=== PATIENT | male | born 1970 | race African-American/Black ===

== ENCOUNTER 2020-01-31 11:38 | Emergency (ER) | payer BC ==
[2020-01-31 11:46] VITALS: TEMP 98
[2020-01-31] MEDS ORDERED: SODIUM CHLORIDE 0.9% 500 ML 500 ML IV STA (12:06)
--- NOTE | 2020-01-31 12:13 | ED ---
Seizure HPI - General Chief Complaint: Seizure Stated Complaint: Seizure Time Seen by Provider: 01/31/20 11:58 Source: EMS Mode of arrival: EMS Limitations: no limitations - History of Present Illness Initial Comments: Patient is a 49-year-old male, with history of hypertension, presenting to the emergency department via EMS after suffering a seizure at work. Patient states he remembers loading a refrigerator onto a truck and the next thing he remembers is waking up laying down. According to bystanders, patient was loading a truck and then ran over to the [employer] and had a witnessed grand mal seizure. This lasted for approximately 1-2 minutes. Patient then remembers waking up to people standing around him, asking him to not get up. Patient denies hitting his head, he denies having a headache, lightheadedness, dizziness, chest pain, shortness of breath. He denies recent fever, chills, abdominal pain, nausea, vomiting. He states he does not take any medications at this time. He used to take medication for high blood pressure but states he "only takes the medication when he feels like it." He does admit to daily cigarette use, regular alcohol and occasional marijuana use. He denies any other drug use. He states prior to this episode today he's been feeling his normal self. He states he has been in isolation for the past 4-5 weeks and has not been anywhere else. He has no other complaints at this time. Upon arrival to the ER, he is hypertensive, tachycardia, afebrile. He is 97% on room air, respiratory rate 16. - Related Data Previous Rx's Medication Instructions Recorded amLODIPine [Norvasc] 5 mg PO DAILY 30 Days #30 tab 01/31/20 Allergies Allergy/AdvReac Type Severity Reaction Status Date / Time No Known Allergies Allergy Verified 01/31/20 14:18 Review of Systems ROS Statement: Those systems with pertinent positive or pertinent negative responses have been documented in the HPI. ROS Other: All systems not noted in ROS Statement are negative. Past Medical History Past Medical History: Hypertension History of Any Multi-Drug Resistant Organisms: None Reported Past Surgical History: No Surgical Hx Reported Smoking Status: Current every day smoker Past Alcohol Use History: None Reported Past Drug Use History: None Reported General Exam - General Exam Comments Initial Comments: GENERAL: Well-appearing, well-nourished and in no acute distress. HEAD: Atraumatic, normocephalic. EYES: Pupils equal round and reactive to light, extraocular movements intact, sclera anicteric, conjunctiva are normal. ENT: TMs normal, nares patent, oropharynx clear without exudates. Moist mucous membranes. NECK: Normal range of motion, supple without lymphadenopathy or JVD. LUNGS: Breath sounds clear to auscultation bilaterally and equal. No wheezes rales or rhonchi. HEART: Tachycardia rate and rhythm without murmurs, rubs or gallops. ABDOMEN: Soft, nontender, normoactive bowel sounds. No guarding, no rebound. No masses appreciated. : Deferred EXTREMITIES: Normal range of motion, no pitting or edema. No clubbing or cyanosis. Strength is 5 out of 5 in upper and lower extremities. Sensation is equal in bilateral upper and lower extremities. Patient is neurovascular intact. NEUROLOGICAL: Cranial nerves II through XII grossly intact. Normal speech, normal gait. PSYCH: Normal mood, normal affect. SKIN: Warm, Dry, normal turgor, no rashes or lesions noted. Limitations: no limitations Course Vital Signs 01/31/20 01/31/20 01/31/20 11:43 12:21 13:28 Temperature 98 F Pulse Rate 117 H 117 H 96 Respiratory 16 16 18 Rate Blood Pressure 222/128 183/114 176/111 O2 Sat by Pulse 97 97 99 Oximetry 01/31/20 15:11 Temperature Pulse Rate 85 Respiratory 16 Rate Blood Pressure 178/117 O2 Sat by Pulse 96 Oximetry Medical Decision Making - Medical Decision Making Patient is a 49-year-old male here via EMS after having a seizure. He denies history of seizures. He arrives slightly tachycardia, hypertensive. He is afebrile. His exam is unremarkable. No neuro deficits. He does have a history of hypertension however does not take medication regularly. He does not follow with the PCP regularly. He does admit to daily cigarette and alcohol abuse. Marijuana use. No other drug use. Lab work shows normal CBC. Liver enzymes are slightly elevated. Urine shows signs of dehydration, no signs of infection. Urine tox is positive for marijuana, no other findings. Serum alcohol is normal. CT of the brain shows a small subarachnoid cyst, rest of CT brain is unremarkable. EKG shows sinus tachycardia. Patient was given fluids and labetalol. Patient remains asymptomatic in the ER. I discussed these findings with the patient. Given the new onset of a seizure, patient will be referred to neurology. Patient was instructed not to drive until follow-up with neurology. Patient's is here with him now and is in agreement with this plan. Patient does follow with [facility] and will call for an appointment and will have them give referral for neurology. Patient will also be given prescription for Norvasc for hypertension. Patient used to be on this medication. Patient and patient's is in agreement with this plan of care. Strict return parameters were discussed with the patient and he verbalized understanding. Patient is stable for discharge. Case discussed in detail with Dr. Rosado. - Lab Data Result diagrams: 01/31/20 12:20 01/31/20 12:20 Lab Results 01/31/20 01/31/20 01/31/20 Range/Units 12:20 12:20 13:28 WBC 8.3 (3.8-10.6) k/uL RBC 4.03 L (4.30-5.90) m/uL Hgb 13.8 (13.0-17.5) gm/dL Hct 43.7 (39.0-53.0) % MCV 108.4 H (80.0-100.0) fL MCH 34.3 (25.0-35.0) pg MCHC 31.6 (31.0-37.0) g/dL RDW 13.1 (11.5-15.5) % Plt Count 388 (150-450) k/uL Neutrophils % 83 % Lymphocytes % 10 % Monocytes % 4 % Eosinophils % 2 % Basophils % 0 % Neutrophils # 6.9 (1.3-7.7) k/uL Lymphocytes # 0.8 L (1.0-4.8) k/uL Monocytes # 0.4 (0-1.0) k/uL Eosinophils # 0.1 (0-0.7) k/uL Basophils # 0.0 (0-0.2) k/uL Macrocytosis Moderate Sodium 138 (137-145) mmol/L Potassium 4.1 (3.5-5.1) mmol/L Chloride 103 (98-107) mmol/L Carbon Dioxide 20 L (22-30) mmol/L Anion Gap 15 mmol/L BUN 12 (9-20) mg/dL Creatinine 0.91 (0.66-1.25) mg/dL Est GFR (CKD-EPI)AfAm >90 (>60 ml/min/1.73 sqM) Est GFR (CKD-EPI)NonAf >90 (>60 ml/min/1.73 sqM) Glucose 131 H (74-99) mg/dL Calcium 10.5 H (8.4-10.2) mg/dL Magnesium 2.2 (1.6-2.3) mg/dL Total Bilirubin 1.4 H (0.2-1.3) mg/dL AST 146 H (17-59) U/L ALT 83 H (4-49) U/L Alkaline Phosphatase 115 (38-126) U/L Total Protein 8.4 H (6.3-8.2) g/dL Albumin 5.0 (3.5-5.0) g/dL Urine Color Yellow Urine Appearance Clear (Clear) Urine pH 5.5 (5.0-8.0) Ur Specific [place] 1.019 (1.001-1.035) Urine Protein 2+ H (Negative) Urine Glucose (UA) Negative (Negative) Urine Ketones 1+ H (Negative) Urine Blood Negative (Negative) Urine Nitrite Negative (Negative) Urine Bilirubin Negative (Negative) Urine Urobilinogen <2.0 (<2.0) mg/dL Ur Leukocyte Esterase Negative (Negative) Urine WBC <1 (0-5) /hpf Ur Squamous Epith Cells <1 (0-4) /hpf Urine Bacteria Rare H (None) /hpf Hyaline Casts 9 H (0-2) /lpf Urine Mucus Rare H (None) /hpf Urine Opiates Screen Not Detected (NotDetected) Ur Oxycodone Screen Not Detected (NotDetected) Urine Methadone Screen Not Detected (NotDetected) Ur Propoxyphene Screen Not Detected (NotDetected) Ur Barbiturates Screen Not Detected (NotDetected) U Tricyclic Antidepress Not Detected (NotDetected) Ur Phencyclidine Scrn Not Detected (NotDetected) Ur Amphetamines Screen Not Detected (NotDetected) U Methamphetamines Scrn Not Detected (NotDetected) U Benzodiazepines Scrn Not Detected (NotDetected) Urine Cocaine Screen Not Detected (NotDetected) U Marijuana (THC) Screen Detected H (NotDetected) Serum Alcohol <10 mg/dL - EKG Data EKG Comments: Ventricular rate 116, P in the low 142, QTC 439. Sinus tach, possible left atrial enlargement, left ventricular hypertrophy. Disposition Clinical Impression: New onset seizure Disposition: HOME SELF-CARE Condition: Stable Instructions (If sedation given, give patient instructions): New-Onset Seizure in Adults (ED) Additional Instructions: Please return to the Emergency Department if symptoms worsen or any other concerns. Take blood pressure medication as prescribed. Contact PCP for neurology referral as discussed. Do not drive until neurology follow-up. Prescriptions: amLODIPine [Norvasc] 5 mg PO DAILY 30 Days #30 tab Is patient prescribed a controlled substance at d/c from ED?: No Referrals: None,Stated [Primary Care Provider] - 1-2 days
[2020-01-31 12:32] LABS: Basophils % (A) 0 %; Eosinophils # (A) 0.1 k/uL (0-0.7); Eosinophils % (A) 2 %; HCT 43.7 % (39.0-53.0); HGB 13.8 gm/dL (13.0-17.5); Lymphocytes # (A) 0.8 k/uL (1.0-4.8); Lymphocytes % (A) 10 %; MCH 34.3 pg (25.0-35.0); MCHC 31.6 g/dL (31.0-37.0); MCV 108.4 fL (80.0-100.0); Macrocytosis Moderate; Mean Platelet Volume 8.1; Monocytes # (A) 0.4 k/uL (0-1.0); Monocytes % (A) 4 %; Neutrophils # (A) 6.9 k/uL (1.3-7.7); Neutrophils % (A) 83 %; Platelet Count 388 k/uL (150-450); RBC 4.03 m/uL (4.30-5.90); RDW 13.1 % (11.5-15.5); WBC 8.3 k/uL (3.8-10.6)
[2020-01-31] MEDS ORDERED: LABETALOL 5 MG/ML VIAL MDV IVP STA (12:34)
[2020-01-31 12:46] LABS: ALT 83 U/L (4-49); AST 146 U/L (17-59); African American GFR (CKD) >90 (>60 ml/min/1.73 sqM); Alcohol <10 mg/dL; Alkaline Phosphatase 115 U/L (38-126); Anion Gap 15 mmol/L; Blood Urea Nitrogen 12 mg/dL (9-20); Calcium 10.5 mg/dL (8.4-10.2); Carbon Dioxide 20 mmol/L (22-30); Chloride 103 mmol/L (98-107); Glucose 131 mg/dL (74-99); Magnesium 2.2 mg/dL (1.6-2.3); Non-African American GFR(CKD) >90 (>60 ml/min/1.73 sqM); Potassium 4.1 mmol/L (3.5-5.1); Sodium 138 mmol/L (137-145); Total Bilirubin 1.4 mg/dL (0.2-1.3); Total Protein 8.4 g/dL (6.3-8.2)
--- NOTE | 2020-01-31 13:00 | CT ---
EXAMINATION TYPE: CT brain wo con DATE OF EXAM: 01/31/2020 COMPARISON: None INDICATION: Seizure activity, new onset DLP: 1099.4 mGycm, Automated exposure control for dose reduction was used. CONTRAST: None CT of the brain is performed utilizing 3 mm thick sections through the posterior fossa and 3 mm thick sections through the remaining calvarium. Study is performed within 24 hours of arrival to the hosp [facility]. No abnormal hyperdensity is present to suggest an acute intracranial hemorrhage. Small subarachnoid cyst may be within the anterior left middle cranial fossa with mild mass effect on the adjacent temporal lobe. No acute infarcts are evident. Ventricles and sulci are appropriate for the patient age. Paranasal sinuses and mastoid air cells within the ifpau-na-rbed are clear. IMPRESSIONS: 1. Small subarachnoid cyst may be within the left middle cranial fossa. 2. CT brain otherwise unremarkable.
[2020-01-31 14:26] LABS: Appearance,Urine Clear (Clear); Bacteria,Urine Rare /hpf; Bilirubin,Urine Negative (Negative); Blood,Urine Negative (Negative); Color,Urine Yellow; Glucose,Urine (UA) Negative (Negative); Hyaline Casts,Urine 9 /lpf (0-2); Ketones,Urine 1+ (Negative); Leukocyte Esterase,Urine Negative (Negative); Mucus,Urine Rare /hpf; Nitrite,Urine Negative (Negative); PH, Urine 5.5 (5.0-8.0); Protein,Urine 2+ (Negative); Specific Gravity,Urine 1.019 (1.001-1.035); Squamous Epithelial Cell,Urine <1 /hpf (0-4); Urobilinogen,Urine <2.0 mg/dL (<2.0); WBC,Urine <1 /hpf (0-5)
[2020-01-31 14:28] LABS: Amphetamine Screen,Urine Not Detected (NotDetected); Barbiturate Screen,Urine Not Detected (NotDetected); Benzodiazepines Screen,Urine Not Detected (NotDetected); Cocaine Screen,Urine Not Detected (NotDetected); Methadone Screen, Urine Not Detected (NotDetected); Opiate Screen,Urine Not Detected (NotDetected); Oxycodone Screen, Urine Not Detected (NotDetected); Phencyclidine Screen,Urine Not Detected (NotDetected); Tricyclic Antidepressant,Urine Not Detected (NotDetected); Urn Cannabinoid Scrn Detected (NotDetected)
[2020-01-31 15:13] VITALS: BP 178/117; PULSE 85; RESP 16
== END 2020-01-31 15:46 | disposition home or self-care (01) ==
LOC: EC 11:38
DX: R56.9 Unspecified convulsions (principal); R00.0 Tachycardia, unspecified; F12.90 Cannabis use, unspecified, uncomplicated; F10.10 Alcohol abuse, uncomplicated; R93.0 Abnormal findings on diagnostic imaging of skull and head, not elsewhere classified; I10 Essential (primary) hypertension; F17.210 Nicotine dependence, cigarettes, uncomplicated
CPT/HCPCS: 36415; 70450; 80053; 80306; 80320; 81001; 83735; 85025; 93005; 96361; 96374; 99285

== ENCOUNTER 2020-03-01 13:48 | Emergency (ER) | payer BC ==
[2020-03-01 13:56] VITALS: RESP 18
[2020-03-01] MEDS ORDERED: ACETAMINOPHEN TAB 325 MG TAB PO STA (14:11)
--- NOTE | 2020-03-01 14:33 | ED ---
General Adult HPI - General Chief complaint: Neuro Symptoms/Deficit Stated complaint: shaking Time Seen by Provider: 03/01/20 14:03 Source: patient Mode of arrival: ambulatory Limitations: no limitations - History of Present Illness Initial comments: 49-year-old male patient presents to the emergency department today for evaluation after experiencing a shaking episode. The patient reports generalized body tremors that lasted about 5 minutes. This occurred approximately one hour ago. Patient was seen and evaluated 1 month ago for new onset seizure. At that time bystanders had witnessed a generalized tonic-clonic seizure. Patient has no history of seizures. Does have a history of high blood pressure which is poorly controlled. Today patient reports a 5 day history of vomiting. States he's had vomiting daily, several episodes. States he has been only able to eat very small amounts at a time. He denies any abdominal pain, constipation, or diarrhea with this. Eyes any fever or chills. States he is wearing a heart monitor ordered by his doctor after having a seizure. He denies any headache, blurred vision, or double vision. Denies numbness or tingling to the extremities. Patient is also reporting occasional cough with no sputum production. Did start Chantix about 4 days ago to quit smoking. Patient denies any recent rash, shortness of breath, chest pain, back pain, dizziness, weakness, hematuria, dysuria, urinary urgency, urinary frequency, headache, visual changes, or any other complaints. - Related Data Home Medications Medication Instructions Recorded Confirmed Lisinopril [Zestril] 40 mg PO DAILY 03/01/20 03/01/20 Varenicline Tartrate [Chantix See Taper PO DAILY 03/01/20 03/01/20 Starter Pack] Previous Rx's Medication Instructions Recorded Ondansetron [Zofran ODT] 4 mg PO Q8HR PRN #20 tab 03/01/20 Allergies Allergy/AdvReac Type Severity Reaction Status Date / Time No Known Allergies Allergy Verified 03/01/20 14:51 Review of Systems ROS Statement: Those systems with pertinent positive or pertinent negative responses have been documented in the HPI. ROS Other: All systems not noted in ROS Statement are negative. Past Medical History Past Medical History: Hypertension, Seizure Disorder Additional Past Medical History / Comment(s): ct - brain abnormality History of Any Multi-Drug Resistant Organisms: None Reported Past Surgical History: No Surgical Hx Reported Smoking Status: Current every day smoker Past Alcohol Use History: None Reported Past Drug Use History: Marijuana General Exam Limitations: no limitations General appearance: alert, in no apparent distress, other (This is a well- developed, well-nourished adult male patient in no acute distress. Vital signs upon presentation are temperature 99.9F, pulse 119, respirations 18, blood pressure 227/119, pulse ox 98% on room air.) Eye exam: Present: normal appearance, PERRL, EOMI. Absent: scleral icterus, conjunctival injection, nystagmus, periorbital swelling ENT exam: Present: normal exam, normal oropharynx, mucous membranes moist Respiratory exam: Present: normal lung sounds bilaterally. Absent: respiratory distress, wheezes, rales, rhonchi, stridor Cardiovascular Exam: Present: regular rate, normal rhythm, normal heart sounds. Absent: systolic murmur, diastolic murmur, rubs, gallop, clicks GI/Abdominal exam: Present: soft, normal bowel sounds. Absent: distended, tenderness, guarding, rebound, rigid Neurological exam: Present: alert, oriented X3, CN II-XII intact, other (Strength in all 4 extremities is 5/5.) Psychiatric exam: Present: normal affect, normal mood Skin exam: Present: warm, dry, intact, normal color. Absent: rash Course Vital Signs 03/01/20 03/01/20 03/01/20 13:53 14:30 15:00 Temperature 99.9 F H Pulse Rate 119 H 94 90 Respiratory 18 18 18 Rate Blood Pressure 227/119 187/119 184/114 O2 Sat by Pulse 98 98 98 Oximetry 03/01/20 03/01/20 03/01/20 16:00 16:15 16:53 Temperature Pulse Rate 90 90 98 Respiratory 18 18 18 Rate Blood Pressure 183/117 188/113 202/121 O2 Sat by Pulse 98 98 100 Oximetry 03/01/20 03/01/20 03/01/20 17:10 17:11 17:25 Temperature 98.7 F Pulse Rate 106 H 111 H Respiratory 18 18 Rate Blood Pressure 186/108 188/113 O2 Sat by Pulse 100 98 Oximetry 03/01/20 18:14 Temperature Pulse Rate 100 Respiratory 18 Rate Blood Pressure 166/95 O2 Sat by Pulse 98 Oximetry EKG Findings - EKG Comments: EKG Findings:: EKG obtained at 1453 shows normal sinus rhythm with a ventricular rate of 98, GA interval 154, QRS duration 92, QT 352, QTc 449. No evidence of ST elevation or depression. Medical Decision Making - Medical Decision Making 49-year-old male patient presents to the emergency department today for evaluation after having an episode of shaking lasting about 5 minutes. Upon arrival patient's blood pressure is elevated at 200 systolic over 120 diastolic. Labs reviewed and did reveal elevated liver enzymes and elevated bilirubin. Patient did have an ultrasound performed outpatient yesterday, I did call the doctor's office this was not available for review at this time. Patient is afebrile. We did give doses of blood pressure medication, blood pressure did improve. No further shaking episodes while here. Temperature was mildly elevated upon arrival, white blood cell count is normal, chest x-ray is negative. I do believe shaking could be related to chills from fever. Discharge follow-up with his primary care physician for recheck in 1-2 days. Return parameters were discussed in detail. He verbalizes understanding and agree with this plan - Lab Data Result diagrams: 03/01/20 14:28 03/01/20 14:28 Lab Results 03/01/20 03/01/20 03/01/20 Range/Units 14:28 14:28 14:28 WBC 5.5 (3.8-10.6) k/uL RBC 4.12 L (4.30-5.90) m/uL Hgb 14.1 (13.0-17.5) gm/dL Hct 43.9 (39.0-53.0) % MCV 106.5 H (80.0-100.0) fL MCH 34.3 (25.0-35.0) pg MCHC 32.2 (31.0-37.0) g/dL RDW 12.9 (11.5-15.5) % Plt Count 238 (150-450) k/uL Neutrophils % 67 % Lymphocytes % 18 % Monocytes % 9 % Eosinophils % 3 % Basophils % 1 % Neutrophils # 3.7 (1.3-7.7) k/uL Lymphocytes # 1.0 (1.0-4.8) k/uL Monocytes # 0.5 (0-1.0) k/uL Eosinophils # 0.1 (0-0.7) k/uL Basophils # 0.0 (0-0.2) k/uL Macrocytosis Moderate PT 9.7 (9.0-12.0) sec INR 0.9 (<1.2) APTT 21.8 L (22.0-30.0) sec Sodium 138 (137-145) mmol/L Potassium 4.6 (3.5-5.1) mmol/L Chloride 100 (98-107) mmol/L Carbon Dioxide 26 (22-30) mmol/L Anion Gap 12 mmol/L BUN 14 (9-20) mg/dL Creatinine 0.90 (0.66-1.25) mg/dL Est GFR (CKD-EPI)AfAm >90 (>60 ml/min/1.73 sqM) Est GFR (CKD-EPI)NonAf >90 (>60 ml/min/1.73 sqM) Glucose 127 H (74-99) mg/dL POC Glucose (mg/dL) (75-99) mg/dL POC Glu I&C Technician ID Lactic Ac Sepsis Rflx Plasma Lactic Acid Jadon (0.7-2.0) mmol/L Calcium 10.0 (8.4-10.2) mg/dL Total Bilirubin 2.0 H (0.2-1.3) mg/dL AST 229 H (17-59) U/L ALT 107 H (4-49) U/L Alkaline Phosphatase 110 (38-126) U/L Total Protein 8.4 H (6.3-8.2) g/dL Albumin 5.2 H (3.5-5.0) g/dL Urine Color Urine Appearance (Clear) Urine pH (5.0-8.0) Ur Specific [place] (1.001-1.035) Urine Protein (Negative) Urine Glucose (UA) (Negative) Urine Ketones (Negative) Urine Blood (Negative) Urine Nitrite (Negative) Urine Bilirubin (Negative) Urine Urobilinogen (<2.0) mg/dL Ur Leukocyte Esterase (Negative) Urine RBC (0-5) /hpf Urine WBC (0-5) /hpf Hyaline Casts (0-2) /lpf Urine Mucus (None) /hpf 03/01/20 03/01/20 03/01/20 Range/Units 14:28 14:28 14:47 WBC (3.8-10.6) k/uL RBC (4.30-5.90) m/uL Hgb (13.0-17.5) gm/dL Hct (39.0-53.0) % MCV (80.0-100.0) fL MCH (25.0-35.0) pg MCHC (31.0-37.0) g/dL RDW (11.5-15.5) % Plt Count (150-450) k/uL Neutrophils % % Lymphocytes % % Monocytes % % Eosinophils % % Basophils % % Neutrophils # (1.3-7.7) k/uL Lymphocytes # (1.0-4.8) k/uL Monocytes # (0-1.0) k/uL Eosinophils # (0-0.7) k/uL Basophils # (0-0.2) k/uL Macrocytosis PT (9.0-12.0) sec INR (<1.2) APTT (22.0-30.0) sec Sodium (137-145) mmol/L Potassium (3.5-5.1) mmol/L Chloride (98-107) mmol/L Carbon Dioxide (22-30) mmol/L Anion Gap mmol/L BUN (9-20) mg/dL Creatinine (0.66-1.25) mg/dL Est GFR (CKD-EPI)AfAm (>60 ml/min/1.73 sqM) Est GFR (CKD-EPI)NonAf (>60 ml/min/1.73 sqM) Glucose (74-99) mg/dL POC Glucose (mg/dL) 118 H (75-99) mg/dL POC Glu I&C Technician ID Radha Camargo Lactic Ac Sepsis Rflx Plasma Lactic Acid Jadon 2.4 H* (0.7-2.0) mmol/L Calcium (8.4-10.2) mg/dL Total Bilirubin (0.2-1.3) mg/dL AST (17-59) U/L ALT (4-49) U/L Alkaline Phosphatase (38-126) U/L Total Protein (6.3-8.2) g/dL Albumin (3.5-5.0) g/dL Urine Color Yellow Urine Appearance Clear (Clear) Urine pH 7.5 (5.0-8.0) Ur Specific [place] 1.023 (1.001-1.035) Urine Protein 1+ H (Negative) Urine Glucose (UA) Negative (Negative) Urine Ketones Negative (Negative) Urine Blood Negative (Negative) Urine Nitrite Negative (Negative) Urine Bilirubin Negative (Negative) Urine Urobilinogen 4.0 (<2.0) mg/dL Ur Leukocyte Esterase Trace H (Negative) Urine RBC 1 (0-5) /hpf Urine WBC 1 (0-5) /hpf Hyaline Casts 3 H (0-2) /lpf Urine Mucus Occasional H (None) /hpf 03/01/20 Range/Units 15:22 WBC (3.8-10.6) k/uL RBC (4.30-5.90) m/uL Hgb (13.0-17.5) gm/dL Hct (39.0-53.0) % MCV (80.0-100.0) fL MCH (25.0-35.0) pg MCHC (31.0-37.0) g/dL RDW (11.5-15.5) % Plt Count (150-450) k/uL Neutrophils % % Lymphocytes % % Monocytes % % Eosinophils % % Basophils % % Neutrophils # (1.3-7.7) k/uL Lymphocytes # (1.0-4.8) k/uL Monocytes # (0-1.0) k/uL Eosinophils # (0-0.7) k/uL Basophils # (0-0.2) k/uL Macrocytosis PT (9.0-12.0) sec INR (<1.2) APTT (22.0-30.0) sec Sodium (137-145) mmol/L Potassium (3.5-5.1) mmol/L Chloride (98-107) mmol/L Carbon Dioxide (22-30) mmol/L Anion Gap mmol/L BUN (9-20) mg/dL Creatinine (0.66-1.25) mg/dL Est GFR (CKD-EPI)AfAm (>60 ml/min/1.73 sqM) Est GFR (CKD-EPI)NonAf (>60 ml/min/1.73 sqM) Glucose (74-99) mg/dL POC Glucose (mg/dL) (75-99) mg/dL POC Glu I&C Technician ID Lactic Ac Sepsis Rflx Y Plasma Lactic Acid Jadon (0.7-2.0) mmol/L Calcium (8.4-10.2) mg/dL Total Bilirubin (0.2-1.3) mg/dL AST (17-59) U/L ALT (4-49) U/L Alkaline Phosphatase (38-126) U/L Total Protein (6.3-8.2) g/dL Albumin (3.5-5.0) g/dL Urine Color Urine Appearance (Clear) Urine pH (5.0-8.0) Ur Specific [place] (1.001-1.035) Urine Protein (Negative) Urine Glucose (UA) (Negative) Urine Ketones (Negative) Urine Blood (Negative) Urine Nitrite (Negative) Urine Bilirubin (Negative) Urine Urobilinogen (<2.0) mg/dL Ur Leukocyte Esterase (Negative) Urine RBC (0-5) /hpf Urine WBC (0-5) /hpf Hyaline Casts (0-2) /lpf Urine Mucus (None) /hpf - Radiology Data Radiology results: report reviewed, image reviewed Two-view x-ray of the chest was obtained. Report was reviewed in its entirety. Impression by Dr. Beyer shows no acute cardiopulmonary process. Disposition Clinical Impression: Hypertension, Shaking Disposition: HOME SELF-CARE Condition: Good Instructions (If sedation given, give patient instructions): Acute Nausea and Vomiting (ED), Hypertension (ED) Additional Instructions: Take medications as directed. Start with clear liquid diet and advance as tolerated. Keep a log of your blood pressure is to follow-up with your primary care physician. Return to the emergency department immediately for any new, worsening, or concerning symptoms. Prescriptions: Ondansetron [Zofran ODT] 4 mg PO Q8HR PRN #20 tab PRN Reason: Nausea Is patient prescribed a controlled substance at d/c from ED?: No Referrals: Logan Rodriges MD [Primary Care Provider] - 1-2 days Time of Disposition: 18:28
[2020-03-01] MEDS: SODIUM CHLORIDE 0.9% 500 ML 500 ML IV SCH ×3 (14:42→15:51)
[2020-03-01 14:48] LABS: Glucose,Whole Blood 118 mg/dL (75-99)
[2020-03-01 15:01] LABS: Basophils % (A) 1 %; Eosinophils # (A) 0.1 k/uL (0-0.7); Eosinophils % (A) 3 %; HCT 43.9 % (39.0-53.0); HGB 14.1 gm/dL (13.0-17.5); Lymphocytes % (A) 18 %; MCH 34.3 pg (25.0-35.0); MCHC 32.2 g/dL (31.0-37.0); MCV 106.5 fL (80.0-100.0); Macrocytosis Moderate; Mean Platelet Volume 8.5; Monocytes # (A) 0.5 k/uL (0-1.0); Monocytes % (A) 9 %; Neutrophils # (A) 3.7 k/uL (1.3-7.7); Neutrophils % (A) 67 %; Platelet Count 238 k/uL (150-450); RBC 4.12 m/uL (4.30-5.90); RDW 12.9 % (11.5-15.5); WBC 5.5 k/uL (3.8-10.6)
[2020-03-01 15:02] LABS: Appearance,Urine Clear (Clear); Bilirubin,Urine Negative (Negative); Blood,Urine Negative (Negative); Color,Urine Yellow; Glucose,Urine (UA) Negative (Negative); Hyaline Casts,Urine 3 /lpf (0-2); Ketones,Urine Negative (Negative); Leukocyte Esterase,Urine Trace (Negative); Mucus,Urine Occasional /hpf; Nitrite,Urine Negative (Negative); PH, Urine 7.5 (5.0-8.0); Protein,Urine 1+ (Negative); RBC,Urine 1 /hpf (0-5); Specific Gravity,Urine 1.023 (1.001-1.035); WBC,Urine 1 /hpf (0-5)
[2020-03-01 15:10] LABS: ALT 107 U/L (4-49); AST 229 U/L (17-59); African American GFR (CKD) >90 (>60 ml/min/1.73 sqM); Albumin 5.2 g/dL (3.5-5.0); Alkaline Phosphatase 110 U/L (38-126); Anion Gap 12 mmol/L; Blood Urea Nitrogen 14 mg/dL (9-20); Carbon Dioxide 26 mmol/L (22-30); Chloride 100 mmol/L (98-107); Glucose 127 mg/dL (74-99); Non-African American GFR(CKD) >90 (>60 ml/min/1.73 sqM); Potassium 4.6 mmol/L (3.5-5.1); Sodium 138 mmol/L (137-145); Total Protein 8.4 g/dL (6.3-8.2)
[2020-03-01] MEDS ORDERED: ENALAPRILAT 1.25 MG/ML 1 ML VIAL IVP STA (15:13)
[2020-03-01 15:17] LABS: INR 0.9 (<1.2); Prothrombin Time 9.7 sec (9.0-12.0)
--- NOTE | 2020-03-01 15:18 | XR ---
EXAMINATION TYPE: XR chest 2V DATE OF EXAM: 03/01/2020 COMPARISON: NONE HISTORY: Syncope and weakness. TECHNIQUE: Frontal and lateral views of the chest are obtained. FINDINGS: There is no focal air space opacity, pleural effusion, or pneumothorax seen. The cardiac silhouette size is within normal limits. The osseous structures are intact. Overlying EKG leads are present. IMPRESSION: No acute cardiopulmonary process.
[2020-03-01 15:20] LABS: Partial Thromboplastin Time 21.8 sec (22.0-30.0)
[2020-03-01] MEDS ORDERED: hydrALAZINE HCL 20 MG/ML 1 ML VIAL IVP STA ×2 (16:37→17:28)
[2020-03-01 17:12] VITALS: TEMP 98.7
[2020-03-01] MEDS ORDERED: LORazepam 2 MG/ML INJ IV STA (17:38)
[2020-03-01 18:14] VITALS: BP 166/95; PULSE 100
== END 2020-03-01 18:40 | disposition home or self-care (01) ==
LOC: EC 13:48
DX: I10 Essential (primary) hypertension (principal); R25.1 Tremor, unspecified; R94.5 Abnormal results of liver function studies; R74.8 Abnormal levels of other serum enzymes; F17.200 Nicotine dependence, unspecified, uncomplicated; Z79.899 Other long term (current) drug therapy
CPT/HCPCS: 36415; 93005; 80053; 83605; 85025; 85610; 85730; 81001; 87040; 87635; 71046; 99284; 96374; 96375 ×2; 96376; 96361 ×2; J2060; J0360

== ENCOUNTER 2020-09-19 22:56 | Inpatient (IN) | payer BC ==
[2020-09-19] MEDS ORDERED: SODIUM CHLORIDE 0.9% 500 ML 500 ML IV STA (23:24)
--- NOTE | 2020-09-19 23:27 | ED ---
Syncope HPI - General Chief Complaint: Syncope Stated Complaint: syncope Time Seen by Provider: 09/19/20 23:02 Source: patient, EMS Mode of arrival: EMS Limitations: no limitations - History of Present Illness MD Complaint: loss of consciousness Onset/Timin -: hour(s) Prodromal Symptoms: vision changes, lightheaded Witnessed: yes - by bystander Injuries Sustained Associated with Event: None Current Symptoms: back to baseline History: previous syncopal episode Context: standing up, other Treatments Prior to Arrival: none - Related Data Home Medications Medication Instructions Recorded Confirmed Varenicline Tartrate [Chantix See Taper PO DAILY 03/01/20 03/01/20 Starter Pack] lisinopriL [Zestril] 40 mg PO DAILY 03/01/20 03/01/20 Previous Rx's Medication Instructions Recorded Ondansetron [Zofran ODT] 4 mg PO Q8HR PRN #20 tab 03/01/20 Allergies Allergy/AdvReac Type Severity Reaction Status Date / Time No Known Allergies Allergy Verified 03/01/20 14:51 Review of Systems ROS Statement: Those systems with pertinent positive or pertinent negative responses have been documented in the HPI. ROS Other: All systems not noted in ROS Statement are negative. Constitutional: Denies: fever, chills Eyes: Denies: vision change Respiratory: Denies: cough, dyspnea Cardiovascular: Reports: syncope. Denies: chest pain, palpitations, dyspnea on exertion, orthopnea Gastrointestinal: Denies: abdominal pain, nausea, vomiting Genitourinary: Denies: dysuria, hematuria Musculoskeletal: Denies: back pain Skin: Denies: rash Neurological: Denies: headache, weakness, numbness, paresthesias, confusion Past Medical History Past Medical History: Hypertension, Seizure Disorder Additional Past Medical History / Comment(s): ct - brain abnormality History of Any Multi-Drug Resistant Organisms: None Reported Past Surgical History: No Surgical Hx Reported Smoking Status: Current every day smoker Past Alcohol Use History: Daily Past Drug Use History: Marijuana General Exam Limitations: no limitations General appearance: alert, in no apparent distress Head exam: Present: atraumatic, normocephalic Eye exam: Present: normal appearance, PERRL, EOMI. Absent: scleral icterus, conjunctival injection Respiratory exam: Present: normal lung sounds bilaterally. Absent: respiratory distress, wheezes, rales, rhonchi, stridor Cardiovascular Exam: Present: regular rate, normal rhythm, normal heart sounds. Absent: systolic murmur, diastolic murmur, rubs, gallop GI/Abdominal exam: Present: soft. Absent: distended, tenderness, guarding, rebound, rigid, mass Extremities exam: Present: normal inspection, normal capillary refill. Absent: pedal edema, calf tenderness Back exam: Present: normal inspection Neurological exam: Present: alert, oriented X3, CN II-XII intact. Absent: motor sensory deficit Skin exam: Present: warm, dry, intact, normal color. Absent: rash Course Vital Signs 09/19/20 23:01 Temperature 97.9 F Pulse Rate 110 H Respiratory 16 Rate Blood Pressure 172/98 O2 Sat by Pulse 98 Oximetry EKG Findings - EKG Results: EKG: sinus rhythm (Rate 87 bpm), normal axis - Blocks, [place], Hypertrophy, ST Abn: Chamber hypertrophy or enlargement: left ventricular hypertrophy or enlargement (LVE) Repolarization changes or abnormalities: Q-T interval prolongation Medical Decision Making - Lab Data Result diagrams: 09/19/20 23:39 09/19/20 23:39 Lab Results 09/19/20 09/19/20 09/19/20 Range/Units 23:39 23:39 23:39 WBC 5.2 (3.8-10.6) k/uL RBC 3.59 L (4.30-5.90) m/uL Hgb 13.5 (13.0-17.5) gm/dL Hct 38.6 L (39.0-53.0) % MCV 107.3 H (80.0-100.0) fL MCH 37.6 H (25.0-35.0) pg MCHC 35.0 (31.0-37.0) g/dL RDW 12.5 (11.5-15.5) % Plt Count 233 (150-450) k/uL MPV 8.6 Macrocytosis Moderate PT 11.1 (9.0-12.0) sec INR 1.1 (<1.2) APTT 22.6 (22.0-30.0) sec D-Dimer 0.56 (<0.60) mg/L FEU Sodium 137 (137-145) mmol/L Potassium 3.4 L (3.5-5.1) mmol/L Chloride 106 (98-107) mmol/L Carbon Dioxide 24 (22-30) mmol/L Anion Gap 7 mmol/L BUN 11 (9-20) mg/dL Creatinine 1.05 (0.66-1.25) mg/dL Est GFR (CKD-EPI)AfAm >90 (>60 ml/min/1.73 sqM) Est GFR (CKD-EPI)NonAf 83 (>60 ml/min/1.73 sqM) Glucose 103 H (74-99) mg/dL Calcium 8.6 (8.4-10.2) mg/dL Magnesium 1.9 (1.6-2.3) mg/dL Total Bilirubin 1.9 H (0.2-1.3) mg/dL AST 170 H (17-59) U/L ALT 62 H (4-49) U/L Alkaline Phosphatase 170 H (38-126) U/L Troponin I (0.000-0.034) ng/mL Total Protein 6.9 (6.3-8.2) g/dL Albumin 3.7 (3.5-5.0) g/dL Serum Alcohol 121 mg/dL 09/19/20 Range/Units 23:39 WBC (3.8-10.6) k/uL RBC (4.30-5.90) m/uL Hgb (13.0-17.5) gm/dL Hct (39.0-53.0) % MCV (80.0-100.0) fL MCH (25.0-35.0) pg MCHC (31.0-37.0) g/dL RDW (11.5-15.5) % Plt Count (150-450) k/uL MPV Macrocytosis PT (9.0-12.0) sec INR (<1.2) APTT (22.0-30.0) sec D-Dimer (<0.60) mg/L FEU Sodium (137-145) mmol/L Potassium (3.5-5.1) mmol/L Chloride (98-107) mmol/L Carbon Dioxide (22-30) mmol/L Anion Gap mmol/L BUN (9-20) mg/dL Creatinine (0.66-1.25) mg/dL Est GFR (CKD-EPI)AfAm (>60 ml/min/1.73 sqM) Est GFR (CKD-EPI)NonAf (>60 ml/min/1.73 sqM) Glucose (74-99) mg/dL Calcium (8.4-10.2) mg/dL Magnesium (1.6-2.3) mg/dL Total Bilirubin (0.2-1.3) mg/dL AST (17-59) U/L ALT (4-49) U/L Alkaline Phosphatase (38-126) U/L Troponin I 0.043 H* (0.000-0.034) ng/mL Total Protein (6.3-8.2) g/dL Albumin (3.5-5.0) g/dL Serum Alcohol mg/dL Disposition Clinical Impression: Syncope, Troponin I above reference range Disposition: ADMITTED IP TO THIS HOSP Condition: Fair Referrals: Logan Rodriges MD [Primary Care Provider] - 1-2 days
--- NOTE | 2020-09-20 00:01 | XR ---
EXAMINATION TYPE: XR chest 2V DATE OF EXAM: 09/19/2020 COMPARISON: 03/01/2020 HISTORY: Syncope TECHNIQUE: 2 views FINDINGS: Heart and mediastinum are normal. Lungs are clear. Diaphragm is normal. Bony thorax appears normal. IMPRESSION: Normal chest. No change.
[2020-09-20 00:03] LABS: ALT 62 U/L (4-49); AST 170 U/L (17-59); African American GFR (CKD) >90 (>60 ml/min/1.73 sqM); Albumin 3.7 g/dL (3.5-5.0); Alkaline Phosphatase 170 U/L (38-126); Anion Gap 7 mmol/L; Blood Urea Nitrogen 11 mg/dL (9-20); Calcium 8.6 mg/dL (8.4-10.2); Carbon Dioxide 24 mmol/L (22-30); Chloride 106 mmol/L (98-107); Glucose 103 mg/dL (74-99); Magnesium 1.9 mg/dL (1.6-2.3); Non-African American GFR(CKD) 83 (>60 ml/min/1.73 sqM); Sodium 137 mmol/L (137-145); Total Bilirubin 1.9 mg/dL (0.2-1.3); Total Protein 6.9 g/dL (6.3-8.2)
[2020-09-20 00:06] LABS: Potassium 3.4 mmol/L (3.5-5.1)
[2020-09-20 00:11] LABS: Alcohol 121 mg/dL
[2020-09-20 00:20] LABS: D-Dimer 0.56 mg/L FEU (<0.60); INR 1.1 (<1.2); Partial Thromboplastin Time 22.6 sec (22.0-30.0); Prothrombin Time 11.1 sec (9.0-12.0)
[2020-09-20 00:31] LABS: HCT 38.6 % (39.0-53.0); HGB 13.5 gm/dL (13.0-17.5); MCH 37.6 pg (25.0-35.0); MCV 107.3 fL (80.0-100.0); Macrocytosis Moderate; Mean Platelet Volume 8.6; Platelet Count 233 k/uL (150-450); RBC 3.59 m/uL (4.30-5.90); RDW 12.5 % (11.5-15.5); WBC 5.2 k/uL (3.8-10.6)
[2020-09-20] MEDS ORDERED: METOPROLOL TARTRATE 25 MG TAB PO STA (00:52)
[2020-09-20] MEDS ORDERED: lisinopriL 20 MG TAB PO STA (00:52)
[2020-09-20] MEDS ORDERED: NITROGLYCERIN SL TABS 0.4 MG TAB SUBLINGUAL PRN (00:54)
[2020-09-20] MEDS ORDERED: ENOXAPARIN 60 MG/0.6 ML SYRINGE SQ ONE (01:00)
[2020-09-20 01:05] LABS: Band Neutrophils % 2 %; Lymphocytes # (M) 2.24 k/uL (1.0-4.8); Monocytes # (M) 0.31 k/uL (0-1.0); Neutrophils % (M) 49 %; Nucleated Red Blood Cells 0 /100 WBC (0-0); Total Cells Counted 100
[2020-09-20 01:06] LABS: Anisocytosis (M) Present; Polychromasia Present
[2020-09-20] MEDS: SODIUM CHLORIDE 0.9% 1,000 ML IV SCH (01:14)
[2020-09-20 01:42] LABS: Appearance,Urine Clear (Clear); Bilirubin,Urine Negative (Negative); Blood,Urine Negative (Negative); Color,Urine Yellow; Glucose,Urine (UA) Negative (Negative); Ketones,Urine Negative (Negative); Leukocyte Esterase,Urine Negative (Negative); Nitrite,Urine Negative (Negative); PH, Urine 6.5 (5.0-8.0); Protein,Urine Negative (Negative)
[2020-09-20] MEDS ORDERED: Potassium Replacement Protocol 1 EACH MISC MISCELLANE PRN (08:24)
[2020-09-20] MEDS ORDERED: LOSARTAN 50 MG TAB PO SCH (09:00)
[2020-09-20 09:11] LABS: Cholesterol 208 mg/dL (<200); HDL Cholesterol 37 mg/dL (40-60)
[2020-09-20 09:49] LABS: Triglycerides 1639 mg/dL (<150)
--- NOTE | 2020-09-20 09:52 | P.CRDCN ---
History of Present Illness History of present illness: HISTORY OF PRESENTING ILLNESS This is a pleasant 50-year-old -[place] male past medical history significant for hypertension, daily alcohol intake and chronic nicotine dependence. 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 He denies prior history of coronary artery disease. We have been asked to see in consultation for syncope. He states he has been previously diagnosed with hypertension however has stopped taking his lisinopril about 6 weeks ago be cause it made his throat feels tight and caused him to not be able to eat. He states he's lost 30 pounds over the course of a month. Yesterday he stood up from the table to use the restroom and felt hot and flushed all over and passed out. He states he was only out momentarily. This was a witnessed event and he had no seizure type activity and no loss of bowel or bladder control. He denies feeling chest pain, shortness of breath, dizziness, palpitations or nausea. He states this also happened back in January and at that time he was told he likely had a seizure. He is not currently on any antiseizure medication or with his prescribed at the time. Blood pressure on arrival was 172/98. He was given a one-time dose of lisinopril last night. DIAGNOSTICS EKG reveals sinus mechanism heart rate of 87 biphasic T waves noted in the anterior leads and nonspecific abnormalities inferiorly. Inferior abnormalities are noted on previous EKGs. Telemetry tracings indicate persistent sinus mechanism with no acute arrhythmias. Chest xray negative for an acute cardiopulmonary process. Laboratory reviewed, WBC 5.2, hemoglobin 13.5, platelets 233, d-dimer 0.56, sodium 137, potassium 3.4, creatinine 1.05, magnesium 1.9, troponin 0.043, 0.028 and 0.024, AST 170, ALT 62, alkaline phosphate 170 and total bilirubin 1.9. He currently takes no daily medications. REVIEW OF SYSTEMS At the time of my exam: CONSTITUTIONAL: Denies fever or chills. CARDIOVASCULAR: Denies chest pain, shortness of breath, orthopnea, PND or palpitations. RESPIRATORY: Denies cough. GASTROINTESTINAL: Denies abdominal pain, diarrhea, constipation, nausea or vomiting. MUSCULOSKELETAL: Denies myalgias. NEUROLOGIC: Denies numbness, tingling or weakness. ENDOCRINE: Denies fatigue, weight change, polydipsia or polyurina. GENITOURINARY: Denies burning, hematuria or urgency with micturation. HEMATOLOGIC: Denies history of anemia or bleeding. PHYSICAL EXAMINATION Blood pressure 180/105 heart rate 74 afebrile and maintaining oxygen saturation on room air. CONSTITUTIONAL: No apparent distress. HEENT: Head is normocephalic. Pupils are equal, round. Sclerae anicteric. Mucous membranes of the mouth are moist. No JVD. No carotid bruit. CHEST EXAMINATION: Lungs are clear to auscultation. No chest wall tenderness is noted on palpation or with deep breathing. HEART EXAMINATION: Regular rate and rhythm. S1, S2 heard. No murmurs, gallops or rub. ABDOMEN: Soft, nontender. Positive bowel sounds. EXTREMITIES: 2+ peripheral pulses, no lower extremity edema and no calf tenderness. NEUROLOGIC EXAMINATION: Patient is awake, alert and oriented x3. ASSESSMENT Syncope, likely vasovagal and related to alcohol intoxication Mild troponin leak of unclear significance Uncontrolled hypertension Transaminitis Hypokalemia Alcohol intoxication Chronic nicotine dependence Daily alcohol intake Medical noncompliance PLAN Troponin leak not secondary to primary myocardial injury. Obtain 2-D echocardiogram and Doppler study to assess cardiac structure and function. Initiate aspirin 81 mg daily and losartan 100 mg daily. Replace potassium per protocol. Repeat renal function and electrolytes in the morning. Further recommendations to follow based upon clinical course. Alcohol and tobacco cessation recommended. Thank you kindly for this consultation. Nurse Practitioner note has been reviewed, I agree with a documented findings and plan of care. Patient was seen and examined. Past Medical History Past Medical History: Hypertension, Seizure Disorder Additional Past Medical History / Comment(s): ct - brain abnormality History of Any Multi-Drug Resistant Organisms: None Reported Past Surgical History: No Surgical Hx Reported Smoking Status: Current every day smoker Past Alcohol Use History: Daily Additional Past Alcohol Use History / Comment(s): Stopped drinking beer 6 months ago. Takes shots daily (5-6) Past Drug Use History: Marijuana - Past Family History Father Family Medical History: Myocardial Infarction ([place]) Mother Additional Family Medical History / Comment(s): Heart Failure Medications and Allergies Home Medications Medication Instructions Recorded Confirmed Type No Known Home Medications 09/20/20 09/20/20 History Allergies Allergy/AdvReac Type Severity Reaction Status Date / Time No Known Allergies Allergy Verified 09/20/20 06:58 Physical Exam Vitals: Vital Signs Temp Pulse Pulse Resp BP BP Pulse Ox 09/20/20 03:31 74 18 160/90 100 09/20/20 02:45 98.3 F 80 18 162/92 99 09/20/20 02:08 135/97 09/20/20 00:50 98.0 F 78 18 142/92 96 09/19/20 23:01 97.9 F 110 H 16 172/98 98 Intake and Output 09/19/20 09/20/20 09/20/20 22:59 06:59 14:59 Other: Weight 61.5 kg Results 09/19/20 23:39 09/19/20 23:39 Cardiac Enzymes 09/19/20 09/19/20 09/20/20 Range/Units 23:39 23:39 02:09 AST 170 H (17-59) U/L Troponin I 0.043 H* 0.028 (0.000-0.034) ng/mL 09/20/20 Range/Units 05:37 AST (17-59) U/L Troponin I 0.024 (0.000-0.034) ng/mL Coagulation 09/19/20 Range/Units 23:39 PT 11.1 (9.0-12.0) sec APTT 22.6 (22.0-30.0) sec CBC 09/19/20 Range/Units 23:39 WBC 5.2 (3.8-10.6) k/uL RBC 3.59 L (4.30-5.90) m/uL Hgb 13.5 (13.0-17.5) gm/dL Hct 38.6 L (39.0-53.0) % Plt Count 233 (150-450) k/uL Comprehensive Metabolic Panel 09/19/20 Range/Units 23:39 Sodium 137 (137-145) mmol/L Potassium 3.4 L (3.5-5.1) mmol/L Chloride 106 (98-107) mmol/L Carbon Dioxide 24 (22-30) mmol/L BUN 11 (9-20) mg/dL Creatinine 1.05 (0.66-1.25) mg/dL Glucose 103 H (74-99) mg/dL Calcium 8.6 (8.4-10.2) mg/dL AST 170 H (17-59) U/L ALT 62 H (4-49) U/L Alkaline Phosphatase 170 H (38-126) U/L Total Protein 6.9 (6.3-8.2) g/dL Albumin 3.7 (3.5-5.0) g/dL Current Medications Generic Name Dose Route Start Last Admin Trade Name Freq PRN Reason Stop Dose Admin Aspirin 81 mg 09/21/20 09:00 Aspirin 325 Mg Tab PO DAILY MICHAEL Sodium Chloride 1,000 mls @ 20 mls/hr 09/20/20 01:00 09/20/20 01:14 Saline 0.9% IV 20 mls/hr .Q24H MICHAEL Administration Losartan Potassium 50 mg 09/20/20 09:00 Losartan 50 Mg Tab PO DAILY MICHAEL Metoprolol Tartrate 25 mg 09/20/20 09:00 Metoprolol Tartrate 25 Mg Tab PO BID [facility] Miscellaneous Information 1 each 09/20/20 08:24 Potassium Replacement Protocol 1 Each Misc MISCELLANE DAILY PRN Per Protocol Protocol Nitroglycerin 0.4 mg 09/20/20 00:54 Nitroglycerin Sl Tabs 0.4 Mg Tab SUBLINGUAL Q5M PRN Chest Pain Potassium Chloride 20 meq 09/20/20 09:00 Potassium Chloride Er 20 Meq Tab.Er PO 09/20/20 10:01 Q1HR [facility] Protocol Intake and Output 09/19/20 09/20/20 09/20/20 22:59 06:59 14:59 Other: Weight 61.5 kg 09/19/20 23:39 09/19/20 23:39
[2020-09-20] MEDS: LOSARTAN 50 MG TAB PO SCH (10:26)
[2020-09-20] MEDS: METOPROLOL TARTRATE 25 MG TAB PO SCH ×2 (10:26→20:28)
[2020-09-20] MEDS: POTASSIUM CHLORIDE ER 20 MEQ TAB.ER PO SCH ×2 (10:27→12:45)
--- NOTE | 2020-09-20 12:00 | ECHOF ---
Referral Reason:syncope MEASUREMENTS -------- HEIGHT: 180.3 cm WEIGHT: 61.2 kg BP: 160/90 IVSd: 1.2 cm (0.6 - 1.1) LVIDd: 4.6 cm (3.9 - 5.3) LVPWd: 1.3 cm (0.6 - 1.1) IVSs: 1.3 cm LVIDs: 3.3 cm LVPWs: 2.0 cm LAESV Index (A-L): 22.24 ml/m Ao Diam: 3.2 cm (2.0 - 3.7) AV Cusp: 2.0 cm (1.5 - 2.6) LA Diam: 2.6 cm (2.7 - 3.8) MV EXCURSION: 20.347 mm (> 18.000) MV EF SLOPE: 155 mm/s (70 - 150) EPSS: 0.6 cm MV E Garo: 0.92 m/s MV DecT: 220 ms MV A Garo: 0.99 m/s MV E/A Ratio: 0.93 RAP: 5.00 mmHg RVSP: 24.94 mmHg FINDINGS -------- This was a technically good study. The left ventricular size is normal. There is mild concentric left ventricular hypertrophy. Overa ll left ventricular systolic function is low-normal with, an EF between 50 - 55 %. The diastolic fi lling pattern is normal for the age of the patient 17.32. The right ventricle is normal in size. The left atrial size is normal. Normal LA size by volume 22+/-6 ml/m2. The right atrial size is normal. The aortic valve is trileaflet and appears structurally normal. The mitral valve is normal. Mild mitral regurgitation is present. The tricuspid valve appears structurally normal. Mild tricuspid regurgitation present. Right vent ricular systolic pressure is normal at < 35 mmHg. Trace/mild (physiologic) pulmonic regurgitation. The aortic root size is normal. Normal inferior vena cava with normal inspiratory collapse consistent with estimated right atrial pre ssure of 5 mmHg. There is no pericardial effusion. CONCLUSIONS -------- 1. The left ventricular size is normal. 2. There is mild concentric left ventricular hypertrophy. 3. Overall left ventricular systolic function is low-normal with, an EF between 50 - 55 %. 4. The diastolic filling pattern is normal for the age of the patient 17.32 5. Mild mitral regurgitation is present. 6. Mild tricuspid regurgitation present. 7. Trace/mild (physiologic) pulmonic regurgitation. 8. There is no pericardial effusion. GROUP TESTER: Bárbara Chicas RDCS
[2020-09-20] MEDS: hydroCHLOROthiazide 25 MG TAB PO SCH (20:28)
--- NOTE | 2020-09-20 21:23 | P.HPIM ---
History of Present Illness H&P Date: 09/20/20 Chief Complaint: syncope Dayne Hawkins is a 50 yo M with PMH of HTN who presented to the ED after passing out at home. He notes he had not been taking any medications for the past few months despite his hypertension as he felt the lisinopril was causing him to lose weight and he did not feel right on it. He states he was lounging around his house yesterday and drinking alcohol when he began to feel his legs give out from under him and blacked out. He states he quickly came to but since this had happened a few times recently he decided to come to the hospital. His syncopal event was witnessed and lasted a few seconds without any shaking or postictal period. On presentation he was tachycardic and hypertensive, BP 170/100, labs with elevated LFTs and trop 0.04. EKG with LVH, trops trended and negative. Review of Systems All systems: negative Constitutional: Denies chills, Denies fever Eyes: denies blurred vision, denies pain Ears, nose, mouth and throat: Denies headache, Denies sore throat Cardiovascular: Denies chest pain, Denies shortness of breath Respiratory: Denies cough Gastrointestinal: Denies abdominal pain, Denies diarrhea, Denies nausea, Denies vomiting Musculoskeletal: Denies myalgias Integumentary: Denies pruritus, Denies rash Neurological: Denies numbness, Denies weakness Psychiatric: Denies anxiety, Denies depression Endocrine: Denies fatigue, Denies weight change Past Medical History Past Medical History: Hypertension, Seizure Disorder Additional Past Medical History / Comment(s): ct - brain abnormality History of Any Multi-Drug Resistant Organisms: None Reported Past Surgical History: No Surgical Hx Reported Smoking Status: Current every day smoker Past Alcohol Use History: Daily Additional Past Alcohol Use History / Comment(s): Stopped drinking beer 6 months ago. Takes shots daily (5-6) Past Drug Use History: Marijuana - Past Family History Father Family Medical History: Myocardial Infarction ([place]) Mother Additional Family Medical History / Comment(s): Heart Failure Medications and Allergies Home Medications Medication Instructions Recorded Confirmed Type No Known Home Medications 09/20/20 09/20/20 History Allergies Allergy/AdvReac Type Severity Reaction Status Date / Time No Known Allergies Allergy Verified 09/20/20 06:58 Physical Exam Vitals: Vital Signs Temp Pulse Pulse Resp BP BP BP 09/20/20 16:00 99.2 F 82 18 199/104 181/102 09/20/20 12:00 98.0 F 80 18 144/66 09/20/20 08:10 98.2 F 74 18 182/105 09/20/20 03:31 74 18 160/90 09/20/20 02:45 98.3 F 80 18 162/92 09/20/20 02:08 135/97 09/20/20 00:50 98.0 F 78 18 142/92 09/19/20 23:01 97.9 F 110 H 16 172/98 Pulse Ox 09/20/20 16:00 100 09/20/20 12:00 99 09/20/20 08:10 100 09/20/20 03:31 100 09/20/20 02:45 99 09/20/20 02:08 09/20/20 00:50 96 09/19/20 23:01 98 Intake and Output 09/20/20 09/20/20 09/20/20 06:59 14:59 22:59 Intake Total 878 240 Balance 878 240 Intake: Intake, IV Titration 160 Amount Sodium Chloride 0.9% 1, 160 000 ml @ 20 mls/hr IV . Q24H [facility] Rx#:[id number] Oral 718 240 Other: # Voids 2 Weight 61.5 kg General: well nourished, well developed, NAD. Vitals reviewed Eyes: PERRL, EOMI, conjunctiva normal HENT: normocephalic, mucus membranes moist Neck: supple, no JVD Lungs: normal respiratory effort, no wheezes or rales CV: Regular rate and rhythm, no murmur. Peripheral pulses 2+ Abdomen: soft, nondistended, no organomegaly Lymph: no cervical or axillary LAD Skin: warm and dry. Neuro: A&Ox3, normal mood and affect Results CBC & Chem 7: 09/19/20 23:39 09/19/20 23:39 Labs: Abnormal Lab Results - Last 24 Hours (Table) 09/19/20 09/19/20 09/19/20 Range/Units 23:39 23:39 23:39 RBC 3.59 L (4.30-5.90) m/uL Hct 38.6 L (39.0-53.0) % MCV 107.3 H (80.0-100.0) fL MCH 37.6 H (25.0-35.0) pg Potassium 3.4 L (3.5-5.1) mmol/L Glucose 103 H (74-99) mg/dL Total Bilirubin 1.9 H (0.2-1.3) mg/dL AST 170 H (17-59) U/L ALT 62 H (4-49) U/L Alkaline Phosphatase 170 H (38-126) U/L Troponin I 0.043 H* (0.000-0.034) ng/mL Triglycerides (<150) mg/dL Cholesterol (<200) mg/dL HDL Cholesterol (40-60) mg/dL 09/20/20 Range/Units 05:37 RBC (4.30-5.90) m/uL Hct (39.0-53.0) % MCV (80.0-100.0) fL MCH (25.0-35.0) pg Potassium (3.5-5.1) mmol/L Glucose (74-99) mg/dL Total Bilirubin (0.2-1.3) mg/dL AST (17-59) U/L ALT (4-49) U/L Alkaline Phosphatase (38-126) U/L Troponin I (0.000-0.034) ng/mL Triglycerides 1639 H (<150) mg/dL Cholesterol 208 H (<200) mg/dL HDL Cholesterol 37 L (40-60) mg/dL Thrombosis Risk Factor Assmnt - Choose All That Apply Any of the Below Risk Factors Present?: Yes Each Factor Represents 1 point: Age 41-60 years, Medical pt on bed rest Thrombosis Risk Factor Assessment Total Risk Factor Score: 2 Thrombosis Risk Factor Assessment Level: Low Risk Assessment and Plan (1) Accelerated hypertension Current Visit: Yes Status: Acute Code(s): I10 - ESSENTIAL (PRIMARY) HYPERTENSION SNOMED Code(s): 04413583 (2) Demand ischemia Current Visit: Yes Status: Acute Code(s): I24.8 - OTHER FORMS OF ACUTE ISCHEMIC HEART DISEASE SNOMED Code(s): 792566536 (3) Syncope Current Visit: Yes Status: Acute Code(s): R55 - SYNCOPE AND COLLAPSE SNOMED Code(s): 112830823 Plan: 1. Syncope, secondary to accelerated hypertension. ACS ruled out, cardiology consulted for further evaluation. Start HCTZ, losartan. Echocardiogram scheduled 2. Elevated LFTs. Suspect due to alcohol abuse. Continue to follow, consider further workup
[2020-09-21] MEDS: cloNIDine HCL 0.2 MG TAB PO SCH ×4 (00:19→19:33)
[2020-09-21] MEDS: SODIUM CHLORIDE 0.9% 1,000 ML IV SCH (05:03)
[2020-09-21 08:12] LABS: African American GFR (CKD) >90 (>60 ml/min/1.73 sqM); Anion Gap 5 mmol/L; Blood Urea Nitrogen 13 mg/dL (9-20); Calcium 9.4 mg/dL (8.4-10.2); Carbon Dioxide 29 mmol/L (22-30); Chloride 104 mmol/L (98-107); Glucose 92 mg/dL (74-99); Non-African American GFR(CKD) >90 (>60 ml/min/1.73 sqM); Potassium 3.8 mmol/L (3.5-5.1); Sodium 138 mmol/L (137-145)
[2020-09-21] MEDS: METOPROLOL TARTRATE 25 MG TAB PO SCH (08:42)
[2020-09-21] MEDS: ASPIRIN 81 MG PO SCH (08:42)
[2020-09-21] MEDS: LOSARTAN 50 MG TAB PO SCH (08:42)
[2020-09-21] MEDS ORDERED: ASPIRIN 325 MG TAB PO SCH (09:00)
[2020-09-21] MEDS: amLODIPine 5 MG TAB PO SCH ×2 (11:25→19:33)
--- NOTE | 2020-09-21 12:59 | P.PN ---
Subjective HISTORY OF PRESENTING ILLNESS This is a pleasant 50-year-old -[place] male past medical history significant for hypertension, daily alcohol intake and chronic nicotine dependence. He does not follow in the office with a die barber for any reason. He is seen and examined sitting up in bed in no acute distress. He denies chest pain, shortness of breath, dizziness or palpitations. Blood pressure 186/99 after medication administration. PHYSICAL EXAMINATION CONSTITUTIONAL: No apparent distress. HEENT: Head is normocephalic. Pupils are equal, round. Sclerae anicteric. Mucous membranes of the mouth are moist. No JVD. No carotid bruit. CHEST EXAMINATION: Lungs are clear to auscultation. No chest wall tenderness is noted on palpation or with deep breathing. HEART EXAMINATION: Regular rate and rhythm. S1, S2 heard. No murmurs, gallops or rub. EXTREMITIES: 2+ peripheral pulses, no lower extremity edema and no calf tenderness. ASSESSMENT Syncope, likely vasovagal and related to alcohol intoxication Mild troponin leak of unclear significance Uncontrolled hypertension Transaminitis Hypokalemia Alcohol intoxication Chronic nicotine dependence Daily alcohol intake Medical noncompliance PLAN Add amlodipine 5 mg BID, increase clonidine to TID and decrease lopressor to daily dosing. Overall he is stable. Further blood pressure management can be done as an outpatient. Alcohol cessation recommended. Nurse Practitioner note has been reviewed, I agree with a documented findings and plan of care. Patient was seen and examined. Objective - Vital Signs Vital signs: Vital Signs Temp 98.6 F 09/21/20 11:58 Pulse 61 09/21/20 11:58 Resp 18 09/21/20 11:58 BP 160/89 09/21/20 11:58 Pulse Ox 100 09/21/20 11:58 Intake & Output 09/20/20 09/21/20 09/21/20 18:59 06:59 18:59 Intake Total 1118 480 Output Total 220 200 Balance 1118 260 -200 Weight 57.8 kg Intake: Intake, IV Titration 160 Amount Sodium Chloride 0.9% 1, 160 000 ml @ 20 mls/hr IV . Q24H MICHAEL Rx#:[id number] Oral 958 480 Output: Urine 220 200 Other: Voiding Method Toilet # Voids 2 1 - Labs CBC & Chem 7: 09/19/20 23:39 09/21/20 07:22
[2020-09-21 14:28] LABS: Albumin 3.4 g/dL (3.5-5.0); Bilirubin, Delta 0.5 mg/dL (0.0-0.2); Bilirubin,Unconjugated 1.7 mg/dL (0.0-1.1); Total Bilirubin 2.2 mg/dL (0.2-1.3); Total Protein 6.6 g/dL (6.3-8.2)
[2020-09-21] MEDS: hydroCHLOROthiazide 25 MG TAB PO SCH (19:33)
[2020-09-21] MEDS ORDERED: cloNIDine HCL 0.1 MG TAB PO STA (20:32)
--- NOTE | 2020-09-21 21:00 | P.PN ---
Subjective On-call hospitalist covering for Dr. Rodriges starting today 09/21/20 This is a pleasant 50 years old -[place]i male with past medical history of alcohol abuse, and other multiple medical problems as below. He was admitted because of syncope, patient was going in and out of the bathroom when he passed out and fell to the floor but workup instantly without any shakiness or seizure- like activity or urine or bowel incontinence, then his to help him and while she was trying to help him he fell again so she called the EMS for him and they were trying to help him he felt for the third time with transient loss of consciousness but gets consciousness almost instantly as per patient. Patient states that he has been drinking heavily that day. Usually he drinks 5-6 shots and smokes marijuana as well as cigarette smoker. He denies depression or suicidal ideation, he denies help assess or hopelessness Patient states that he has history of seizure last January when he was at work and he developed a brief period of seizure-like activity, at that time he was drinking alcohol as usual and he was not trying to quit or withdrawal from a lcohol. He was evaluated by neurologist whom he could not remember the name he did MRI of the brain for him which was unremarkable and he was not started on any antiseizure medication as per patient Also he states that he was started on lisinopril for blood pressure control however it caused him vomiting and his throat to close and he lost weight for about one month so he quit using it. Currently during this admission his blood pressure was still elevated and his systolic readings ranging between 183-188 despite using 5 blood pressure medication including Norvasc, clonidine, metoprolol, losartan and hydrochlorothiazide Also patient has elevated liver enzymes mostly likely secondary to alcoholism and they were trending down almost back to normal however still have elevated bilirubin around 1.7 Patient has mild elevated troponin, evaluated by director of corporate communications and found no significant abnormality and cardiology service cleared the patient for discharge from their perspective Patient was eager for discharge today and I called with his PCP office and they made him appointment this coming Friday however on rechecking his blood pressure is found to be persistently high at 180 despite 5 different antihypertensive medication, therefore we will keep the patient for further monitoring. In the meantime we'll ask for nephrology consult. Also we'll check such as to check for his liver ultrasound and psychiatric evaluation Review of systems CONSTITUTIONAL: No fever, no malaise, no fatigue. HEENT: No recent visual problems or hearing problems. Denied any sore throat. CARDIOVASCULAR: No orthopnea, PND, no palpitations, no syncope. PULMONARY: No shortness of breath, no cough, no hemoptysis. GASTROINTESTINAL: No diarrhea, no nausea, no vomiting, no abdominal pain. Nor moactive bowel sounds. NEUROLOGICAL: No headaches, no weakness, no numbness. Active Medications Generic Name Dose Route Start Last Admin Trade Name Freq PRN Reason Stop Dose Admin Amlodipine Besylate 5 mg 09/21/20 10:49 09/21/20 19:33 Amlodipine 5 Mg Tab PO 5 mg BID MICHAEL Administration Aspirin 81 mg 09/21/20 09:00 09/21/20 08:42 Aspirin 81 Mg PO 81 mg DAILY MICHAEL Administration Clonidine 0.2 mg 09/21/20 16:00 09/21/20 19:33 Clonidine Hcl 0.2 Mg Tab PO 0.2 mg TID MICHAEL Administration Famotidine 20 mg 09/21/20 21:00 Famotidine 20 Mg/2 Ml Vial IV Q12HR MICHAEL Heparin Sodium (Porcine) 5,000 unit 09/21/20 21:00 Heparin Sodium,Porcine 5,000 Unit/Ml 1 Ml Vial SQ Q12HR MICHAEL Hydrochlorothiazide 25 mg 09/20/20 21:00 09/21/20 19:33 Hydrochlorothiazide 25 Mg Tab PO 25 mg HS MICHAEL Administration Sodium Chloride 1,000 mls @ 20 mls/hr 09/20/20 01:00 09/21/20 05:03 Saline 0.9% IV Not Given .Q24H MICHAEL Losartan Potassium 100 mg 09/20/20 09:00 09/21/20 08:42 Losartan 50 Mg Tab PO 100 mg DAILY MICHAEL Administration Metoprolol Tartrate 25 mg 09/22/20 09:00 Metoprolol Tartrate 25 Mg Tab PO DAILY MICHAEL Miscellaneous Information 1 each 09/20/20 08:24 Potassium Replacement Protocol 1 Each Misc MISCELLANE DAILY PRN Per Protocol Protocol Nitroglycerin 0.4 mg 09/20/20 00:54 Nitroglycerin Sl Tabs 0.4 Mg Tab SUBLINGUAL Q5M PRN Chest Pain Objective - Vital Signs Vital signs: Vital Signs Temp 98.6 F 09/21/20 11:58 Pulse 57 L 09/21/20 14:00 Resp 18 09/21/20 14:00 BP 160/89 09/21/20 11:58 Pulse Ox 100 09/21/20 11:58 Intake & Output 09/20/20 09/21/20 09/21/20 18:59 06:59 18:59 Intake Total 1118 480 621 Output Total 220 200 Balance 1118 260 421 Weight 57.8 kg Intake: Intake, IV Titration 160 140 Amount Sodium Chloride 0.9% 1, 160 140 000 ml @ 20 mls/hr IV . Q24H MICHAEL Rx#:[id number] Oral [id number] [id number] 481 Output: Urine 220 200 Other: Voiding Method Toilet # Voids 2 4 - Labs CBC & Chem 7: 09/19/20 23:39 09/21/20 07:22 Labs: Abnormal Lab Results - Last 24 Hours (Table) 09/21/20 Range/Units 07:22 Total Bilirubin 2.2 H (0.2-1.3) mg/dL Unconjugated Bilirubin 1.7 H (0.0-1.1) mg/dL Delta Bilirubin 0.5 H (0.0-0.2) mg/dL AST 67 H (17-59) U/L Alkaline Phosphatase 133 H (38-126) U/L Albumin 3.4 L (3.5-5.0) g/dL Assessment and Plan Assessment: Hypertensive urgency, resistant hypertension Elevated troponin, mostly demand ischemia. Cleared by director of corporate communications for disch arge Syncope, most likely vasovagal and related to drinking alcohol Elevated liver enzymes and bilirubin, mostly secondary to alcoholic affect Alcohol abuse at-risk of alcohol withdrawal Nicotine dependence Substance abuse with marijuana History of seizure last January, not on any AED, evaluated by neurologist per patient history Plan: This is a pleasant 50 years old male who presents with alcohol abuse with positive vesicle syncope and secondary to alcohol. And resistant hypertension Continue with same antihypertensive medication. Consult nephrology. Also we'll ask for psychiatric evaluation related to his alcohol abuse Cardiology input is appreciated and they cleared him for discharge from their perspective Monitor liver enzymes and check liver ultrasound Labs and medication were reviewed.. Continue same treatment. Continue with symptomatic treatment. Resume home medication. Monitor lytes and vitals. DVT and GI prophylaxis. Further recommendationsas per clinical course of the patient DVT prophylaxis: Subcutaneous heparin GI Prophylaxis: Pepcid Prognosis is guarded
[2020-09-21] MEDS: FAMOTIDINE 20 MG/2 ML VIAL IV SCH (22:08)
[2020-09-21] MEDS: HEPARIN SODIUM,PORCINE 5,000 UNIT/ML 1 ML VIAL SQ SCH (22:08)
[2020-09-22] MEDS ORDERED: hydroCHLOROthiazide 25 MG TAB PO SCH ×2 (07:15→07:30)
[2020-09-22] MEDS ORDERED: amLODIPine 2.5 MG TAB PO SCH (07:30)
[2020-09-22] MEDS: ASPIRIN 81 MG PO SCH (08:51)
[2020-09-22] MEDS: LOSARTAN 50 MG TAB PO SCH (08:52)
[2020-09-22] MEDS: FAMOTIDINE 20 MG/2 ML VIAL IV SCH (08:52)
[2020-09-22] MEDS: HEPARIN SODIUM,PORCINE 5,000 UNIT/ML 1 ML VIAL SQ SCH (08:53)
[2020-09-22] MEDS ORDERED: hydrALAZINE HCL 25 MG TAB PO SCH (09:00)
[2020-09-22] MEDS ORDERED: METOPROLOL TARTRATE 25 MG TAB PO SCH (09:00)
[2020-09-22] MEDS ORDERED: cloNIDine HCL 0.1 MG TAB PO SCH (09:00)
--- NOTE | 2020-09-22 09:30 | US ---
EXAMINATION TYPE: US liver DATE OF EXAM: 09/22/2020 COMPARISON: NONE CLINICAL HISTORY: Elevated bilirubin. Abnormal labs. No prior surgery. EXAM MEASUREMENTS: Liver Length: 16.4 cm Gallbladder Wall: 0.2 cm CBD: 0.5 cm Right Kidney: 9.6 x 4.7 x 3.7 cm Pancreas: wnl. Main pancreatic duct = 3.3 mm. Liver: wnl Gallbladder: wnl Evidence for sonographic Fong's sign: neg CBD: wnl Right Kidney: No hydronephrosis or masses seen IMPRESSION: Pancreatic duct is dilated.
[2020-09-22] MEDS ORDERED: ALPRAZolam 0.5 MG TAB PO PRN (10:16)
[2020-09-22 10:19] LABS: Albumin 3.9 g/dL (3.5-5.0); Bilirubin, Delta 0.3 mg/dL (0.0-0.2); Bilirubin,Unconjugated 1.5 mg/dL (0.0-1.1); Total Bilirubin 1.8 mg/dL (0.2-1.3); Total Protein 6.9 g/dL (6.3-8.2)
[2020-09-22] MEDS ORDERED: LABETALOL 5 MG/ML VIAL MDV IVP STA ×2 (10:46→10:49)
[2020-09-22 11:27] VITALS: TEMP 98.3
--- NOTE | 2020-09-22 11:39 | P.PN ---
Subjective HISTORY OF PRESENTING ILLNESS This is a pleasant 50-year-old -[place] male past medical history significant for hypertension, daily alcohol intake and chronic nicotine dependence. He does not follow in the office with a diagnostic radiologic technologist for any reason. He is seen and examined sitting up in bed in no acute distress. He denies chest pain, shortness of breath, dizziness or palpitations. Blood pressure 186/99 after medication administration. 09/22/2020 Patient was seen and examined sitting up in bed in no acute distress. He is agitated and irritated this morning as he has been here now for 2 days and his blood pressures got worse. Nephrology has been consult. They have ordered a renal artery CT. blood pressure [id number] heart rate 75 afebrile maintaining oxygen saturation on room air. PHYSICAL EXAMINATION CONSTITUTIONAL: No apparent distress. HEENT: Head is normocephalic. Pupils are equal, round. Sclerae anicteric. Mucous membranes of the mouth are moist. No JVD. No carotid bruit. CHEST EXAMINATION: Lungs are clear to auscultation. No chest wall tenderness is noted on palpation or with deep breathing. HEART EXAMINATION: Regular rate and rhythm. S1, S2 heard. No murmurs, gallops or rub. EXTREMITIES: 2+ peripheral pulses, no lower extremity edema and no calf tenderness. ASSESSMENT Syncope, likely vasovagal and related to alcohol intoxication Mild troponin leak of unclear significance Uncontrolled hypertension Transaminitis Hypokalemia Alcohol intoxication Chronic nicotine dependence Daily alcohol intake Medical noncompliance PLAN Give 1 dose of IV labetalol 20 mg now. Increase amlodipine to 7.5 mg twice a day. At hydralazine 25 mg 3 times a day and hydrochlorothiazide 25 mg daily. Nurse Practitioner note has been reviewed, I agree with a documented findings and plan of care. Patient was seen and examined. Objective - Vital Signs Vital signs: Vital Signs Temp 98.3 F 09/22/20 11:26 Pulse 78 09/22/20 11:26 Resp 16 09/22/20 11:26 BP 138/85 09/22/20 11:26 Pulse Ox 100 09/22/20 11:26 Intake & Output 09/21/20 09/22/20 09/22/20 18:59 06:59 18:59 Intake Total 801 417 Output Total 200 100 Balance 601 -100 417 Weight 56.9 kg Intake: Intake, IV Titration 140 Amount Sodium Chloride 0.9% 1, 140 000 ml @ 20 mls/hr IV . Q24H [facility] Rx#:[id number] Oral [id number] 417 Output: Urine 200 100 Other: Voiding Method Toilet Toilet # Voids 4 - Labs CBC & Chem 7: 09/19/20 23:39 09/21/20 07:22 Labs: Abnormal Lab Results - Last 24 Hours (Table) 09/21/20 09/22/20 09/22/20 Range/Units 07:22 08:55 08:55 Total Bilirubin 2.2 H 1.8 H (0.2-1.3) mg/dL Unconjugated Bilirubin 1.7 H 1.5 H (0.0-1.1) mg/dL Delta Bilirubin 0.5 H 0.3 H (0.0-0.2) mg/dL GGT 730 H (15-73) U/L AST 67 H (17-59) U/L Alkaline Phosphatase 133 H (38-126) U/L Albumin 3.4 L (3.5-5.0) g/dL
--- NOTE | 2020-09-22 13:02 | CT ---
CT angiogram of the renal artery HISTORY: Hypertension Helical acquisition obtained through the abdomen during dynamic administration 100 cc [id number] IV. 3-dimensional reconstructions were performed and alternate workstation. Automated exposure control fo r dose reduction. DLP 281.2 mGycm No comparisons The aorta is patent from the descending aorta through the bifurcation. Common iliac, internal and ext ra iliac, superior and inferior mesenteric arteries, celiac axis, bilateral renal arteries are widely patent. No evident dissection. Mild atheromatous change present within the boss of the aorta iliac distribution. Lung bases are clear. No pleural or pericardial effusion. No evident liver mass. No retroperitoneal adenopathy. Degenerative disc changes are present in the lo wer lumbar spine. Cortical cysts present at the left kidney lower pole medially and inferiorly. No as cites. Spleen and adrenal glands, pancreas and gallbladder are unremarkable. No bowel obstruction. IMPRESSION: No evident renal artery stenosis.
--- NOTE | 2020-09-22 15:15 | CONS ---
CONSULTATION REASON FOR CONSULT: Uncontrolled hypertension. HISTORY OF PRESENT ILLNESS: The patient is a 50-year-old male with history of hypertension initially diagnosed about 5-6 years ago, but the patient did not start taking any medications until this year. He was initially started on a medication which he does not remember the name of, which he took for about a month; it did not improve his blood pressure. However, then he was started in February on lisinopril. He had been up to 40 mg, and that controlled his blood pressure significantly well. His systolic was around 129 at that time. Patient, however, stopped the lisinopril, as he had a choking sensation and swelling of the throat and sensation of his throat swelling up. Since then he had not been on any medications until he came into the hospital 2 days ago. Patient was actually admitted with history of syncope. He denied any significant palpitations. No history of headaches. No blurred vision. Blood pressure has been elevated since he was admitted, with systolic blood pressure around 180-190 mmHg. The patient is currently maintained on losartan. He seems to be tolerating that well. He is maintained also on the clonidine, Norvasc and hydrochlorothiazide along with the Lopressor. The patient does have a history of smoking. He denies any other drug abuse in terms of cocaine. However, he does use marijuana. No history of use of NSAIDs prior to admission. Patient does state that he feels he is very anxious and stressed out, as his blood pressure was not controlled over the last 2 days since hospitalization. No complaints of chest pains or shortness of breath. The patient does not believe he snores at night. PAST MEDICAL HISTORY: His past medical history is significant for hypertension and history of seizure disorder with no major abnormalities noted on EEG. The patient has been evaluated by Neurology. SURGICAL HISTORY: None. SOCIAL HISTORY: Positive for smoking marijuana, and alcohol use as well. The patient apparently stopped drinking 6 months ago. MEDICATIONS AT HOME PRIOR TO ADMISSION: None. ALLERGIES: ALLERGIES include LISINOPRIL, which caused swelling, which caused sensation of choking. No history of swelling of the mouth, lips or hands. REVIEW OF SYSTEMS: As per HPI. Other systems negative. PHYSICAL EXAMINATION: Patient is comfortable, awake, not in any acute distress. Blood pressure was elevated at 210/105. Repeat blood pressure was down to 138/85, heart rate 78 per minute. He is saturating 100% on room air. EXAMINATION OF THE HEART: S1 and S2. EXAMINATION OF LUNGS: Bilateral breath sounds are heard. ABDOMEN: Soft, non-tender. Examination of lower extremities shows no evidence of edema. ANIMAL PHYSIOLOGY TEACHER exam is grossly intact. LABS: Labs show sodium of 138, potassium 3.8, chloride 104, BUN 13, serum creatinine 0.95. UA is completely benign. ASSESSMENT: Uncontrolled hypertension, partly exacerbated by anxiety and stress. The patient is back on Cozaar and his blood pressure remains uncontrolled. Therefore this is concerning. Previously he was only maintained on lisinopril, with good control of blood pressure. There is concern for possible underlying renal artery stenosis in someone who is young and, given that his renal function is close to normal, I will proceed with CT angiogram to rule out underlying renal artery stenosis. The patient is also advised that he can be discharged post angiogram and can follow up as outpatient. He is advised to continue to monitor his blood pressure at home. Patient is also advised to cut down and eventually quit smoking, continue to avoid use of NSAIDs and avoid high- salt-containing foods. I will also check a renal aldosterone level. We will check a TSH if it has not been done yet and proceed with renal artery angiogram. We can add hydralazine, as blood pressure remains uncontrolled, and follow up as outpatient in about one week's time. Thank you for this consultation. Will continue to follow the patient with you during his hospitalization. STEPHANIE / ANANYA: [id number] /
[2020-09-22 15:39] VITALS: BMI 18.0
--- NOTE | 2020-09-22 15:51 | CONS ---
CONSULTATION DATE OF SERVICE: 09/22/2020 PURPOSE FOR CONSULTATION: Evaluate for alcohol-related issues. HISTORY OF PRESENTING ILLNESS: The patient is a 50-year-old male. He presented to the ED after passing out at home. He had been off medications specifically for hypertension. He had lost significant weight. He had been drinking. He had episodes at home where he would black out and then come to again. His syncopal episodes were witnessed and they were noted to last for a few seconds without any postictal issues. He does have a diagnosis of seizure disorder, patient stated he has not had a seizure since last January. He has significant drinking issues. The patient stated that he had stopped drinking beer in the recent past. He started drinking hard liquor. He said that he would drink 1 or 2 shots at a time and then perhaps every few hours would drink some more. He suggested that he would drink about 6-7 shots per day. Patient notes that in addition alcohol, he also smokes some marijuana. In followup Dr. Bills from yesterday, patient reported to Dr. Bills that he had been "drinking heavily on the day of admission and usually he drinks 5-6 shots and smokes marijuana." When I talked to the patient, he was vague about the circumstances. On the day of admission, he also was vague about longer-term issues with alcohol and marijuana use. I asked the patient what his longest period of sobriety was, he stated that he had a 63 day sobriety when he was incarcerated in 2001. He was vague about whether he has had any stretches of time without alcohol and marijuana use since then. He has not had substance abuse treatment in the past. He says that he does have a commitment to stop drinking, though he was vague about whether that would also include stopping use of marijuana. He lives with his and 3 children, ages 17, 19 and 21. He notes that his also drinks, he was vague about what issues she might possibly have with alcohol. He said he had not talked with her about his own plan to stop drinking as he could not give any information as to whether his might consider the same. Patient states at home he has been running high blood pressures with systolic pressures being above 160 and diastolic pressures being approximately 90. He said he has had some times when he took his blood pressure at home, they were roughly in a normal range of 140/90, though when he would go into the doctor's office, the numbers would be considerably higher. Vital signs for this morning at 0800 include BP 210/105, pulse 75 and regular, respirations 17, oxygen saturation 99. His last temperature at 0400 was 98.2. MENTAL STATUS EXAM: Patient was sitting up in bed. He gave fairly good eye contact. Psychomotor activity was slowed. Speech was somewhat monotone and soft. He answered questions with brief responses. He did not say a lot. He was not too spontaneous or interactive. His affect was blunted. His mood reserved. It was difficult to say how distressed he might feel. He had a rather quiet reserved manner. There was no indication of thought disorder. He denied thoughts of harm to self or others. Cognition was clear. ASSESSMENT: This 50-year-old male was diagnosed with alcohol and marijuana dependence and acute substance withdrawal from both alcohol and marijuana. I had an extensive discussion with the patient regarding the process of withdrawal, including time course, expectations and management issues. I talked about the long-term issues related to alcohol use versus maintaining himself free of use of any abusive substances. During the interview, it was very difficult to get a sense of how motivated the patient was towards being off alcohol and marijuana. He stated that he was not inclined to be referred to inpatient substance use treatment nor being referred for outpatient services. I did outline potential outpatient services of which he might avail himself. I strongly encouraged the patient to discuss these issues with his in regard to what support she may provide for him. STEPHANIE / ANANYA: [id number] /
[2020-09-22 17:04] VITALS: BP 153/95; PULSE 73; RESP 17
[2020-09-22] MEDS ORDERED: LABETALOL 200 MG TAB PO SCH (21:00)
[2020-09-22] MEDS ORDERED: FAMOTIDINE 20 MG TAB PO SCH (21:00)
--- NOTE | 2020-09-23 00:47 | P.DS ---
Providers Date of admission: 09/22/20 12:50 Attending physician: Logan Rodriges MD Consults: 09/20/20 00:54 Consult Physician Routine Consulting Provider: Shyann Swann Consult Reason/Comments: Minimally elevated troponin. Syncope Do you want consulting provider notified?: Yes 09/21/20 20:54 Consult Physician Routine Consulting Provider: Guilherme Jefferson Consult Reason/Comments: alcohol abuse Do you want consulting provider notified?: Yes Consult Physician Routine Consulting Provider: Anisha Lewis Consult Reason/Comments: Resistant hypertension Do you want consulting provider notified?: Yes 09/22/20 13:09 Consult Physician Urgent Consulting Provider: Alberto Bravo Consult Reason/Comments: dilated pancreatic duct Do you want consulting provider notified?: Yes Primary care physician: Logan Rodriges MD Hospital Course: Diagnoses: Hypertensive urgency, resistant hypertension. Controlled upon discharge Elevated troponin, mostly demand ischemia. Cleared by metal engraver for dis charge Syncope, most likely vasovagal and related to drinking alcohol Elevated liver enzymes and bilirubin, mostly secondary to alcoholic affect Dilated pancreatic duct, patient informed and he wants to follow up as an outpatient. He is asymptomatic Alcohol abuse at-risk of alcohol withdrawal Nicotine dependence Substance abuse with marijuana History of seizure last January, not on any AED, evaluated by neurologist per patient history Hospital course: This is a pleasant 50 years old -[place] male with past medical history of alcohol abuse, and other multiple medical problems as below. He was admitted because of syncope, patient was going in and out of the bathroom when he passed out and fell to the floor but workup instantly without any shakiness or seizure- like activity or urine or bowel incontinence, then his to help him and while she was trying to help him he fell again so she called the EMS for him and they were trying to help him he felt for the third time with transient loss of consciousness but gets consciousness almost instantly as per patient. Patient states that he has been drinking heavily that day. Usually he drinks 5-6 shots and smokes marijuana as well as cigarette smoker. He denies depression or suicidal ideation, he denies help assess or hopelessness. Patient counseled extensively and he told me on several occasions is going to quit drinking al cohol and smoking. No symptoms of alcohol withdrawal yesterday or today. Patient was started on 5 blood pressure medication however it was persistently high with systolic BP [id number], Nephrology Team Evaluated the Patient and They Recommended CTA of the Renal to Rule Out Renal Artery Stenosis, after Explaining the Risks and Benefits Including but Not Limited to the Risk of Nephrotoxicity Patient Agrees for the Test Which Came Back Negative for Renal Artery Stenosis. Eventually his blood pressure controlled after adding hydralazine to the regimen. Metoprolol was stopped because patient heart rate was 50 so metal engraver recommended to stop the Lopressor. Patient blood pressure checked twice prior to discharge with his BP 138 and 153 (refer to vital signs) after increasing Norvasc to 7.5 mg twice daily and placing on hydralazine 25 mg twice daily. Other 3 medication on discharge include clonidine 0.3 mg, hydrochlorothiazide 25 mg and losartan 100 mg, patient agrees with this plan and this medication and to follow up as an outpatient with metal engraver Dr. Young in one week and his PCP on this coming Friday. Liver enzymes came back to normal however bilirubin was still elevated but tr ending down to 2.2 to 1.7, liver ultrasound showed elevated pancreatic duct, GI consult was obtained however they called the bedside nurse Ramya and told her patient and follow-up as an outpatient, patient himself does not want to wait for GI evaluation and he wants to see them as an outpatient as he is asymptomatic. Since yesterday patient is asymptomatic and he was back to his normal self, he w as so eager to leave, and he was adamant to be discharged since morning today however he agreed to finish all the workup and he agrees with the plan He denies alcohol or illicit drugs however psychiatrist evaluated the patient for his alcohol problem with extensive counseling provided Eventually patient was cleared for discharge by metal engraver Dr. Young, Dr. Lewis Problems and management plan were discussed with the patient and he verbalized understanding and acceptance Patient was found stable and can be discharged home however he needs follow-up as an outpatient. Patient was instructed to follow up with PCP within one week and patient agrees with appointment made for him on this coming Friday on 09/25, also patient was instructed to follow up with metal engraver Dr. Young and [employer] rep Dr. Lewis in 1-2 weeks and he agrees Gen: patient is a AAOx3, no distress CVS: S1-S2, RRR, no murmur Lungs: B/L CTA, no wheezing Abdomen: soft, no distention, no tenderness, positive bowel sounds Extremity: no leg edema or induration Time spent more than 35 minutes Patient Condition at Discharge: Fair Plan - Discharge Summary Discharge Rx Participant: No New Discharge Prescriptions: New Aspirin 81 mg PO DAILY #30 chew Losartan [Cozaar] 100 mg PO DAILY #30 tab hydroCHLOROthiazide [Hydrodiuril] 25 mg PO HS #30 tab Nitroglycerin Sl Tabs [Nitrostat] 0.4 mg SUBLINGUAL Q5M PRN #20 tab PRN Reason: Chest Pain hydrALAZINE HCL [Apresoline] 25 mg PO BID #60 tab cloNIDine HCL [Catapres] 0.3 mg PO TID #270 tab amLODIPine [Norvasc] 7.5 mg PO BID #180 tab Discharge Medication List Aspirin 81 mg PO DAILY #30 chew 09/21/20 [Rx] Losartan [Cozaar] 100 mg PO DAILY #30 tab 09/21/20 [Rx] Nitroglycerin Sl Tabs [Nitrostat] 0.4 mg SUBLINGUAL Q5M PRN #20 tab 09/21/20 [Rx] hydroCHLOROthiazide [Hydrodiuril] 25 mg PO HS #30 tab 09/21/20 [Rx] amLODIPine [Norvasc] 7.5 mg PO BID #180 tab 09/22/20 [Rx] cloNIDine HCL [Catapres] 0.3 mg PO TID #270 tab 09/22/20 [Rx] hydrALAZINE HCL [Apresoline] 25 mg PO BID #60 tab 09/22/20 [Rx] Follow up Appointment(s)/Referral(s): Anisha Lewis MD [STAFF PHYSICIAN] - 1 Week ([employer] rep for your resistant hypertension ) Lawrence Young MD [STAFF PHYSICIAN] - 3 Weeks (Octuay 4th, 3:30) Logan Rodriges MD [Primary Care Provider] - 09/25/20 9:45 am Alberto Bravo MD [STAFF PHYSICIAN] - 1 Week (dilated pancreatic duct) Patient Instructions/Handouts: Syncope (DC), Liver Profile (GEN), Hypertension (DC) Activity/Diet/Wound Care/Special Instructions: heart healthy diet , low salt diet activity as tolerated Discharge Disposition: HOME SELF-CARE
== END 2020-09-22 17:00 | disposition home or self-care (01) | DRG 305 ==
LOC: SUPCPDRO 22:56 → EC 22:56 → 3SCARD 09-20 00:54 → OBSVTOIN 09-22 12:50
PROVIDERS: ADMIT Family Medicine; ATTEND Family Medicine
PROC: B4181ZZ Fluoroscopy of Bilateral Renal Arteries using Low Osmolar Contrast (ICD-10-PCS; principal; 2020-09-22)
DX: I16.0 Hypertensive urgency (principal); I24.8 Other forms of acute ischemic heart disease; I10 Essential (primary) hypertension; G40.909 Epilepsy, unspecified, not intractable, without status epilepticus; F41.9 Anxiety disorder, unspecified; K86.89 Other specified diseases of pancreas; F10.229 Alcohol dependence with intoxication, unspecified; Y90.6 Blood alcohol level of 120-199 mg/100 ml; Z71.41 Alcohol abuse counseling and surveillance of alcoholic; Z71.6 Tobacco abuse counseling; F17.210 Nicotine dependence, cigarettes, uncomplicated; E80.6 Other disorders of bilirubin metabolism; E87.6 Hypokalemia; F12.20 Cannabis dependence, uncomplicated; Z79.899 Other long term (current) drug therapy; Z82.49 Family history of ischemic heart disease and other diseases of the circulatory system; Z91.19 Patient's noncompliance with other medical treatment and regimen
CPT/HCPCS: 36415; 71046; 74175; 76705; 80048; 80053; 80061; 80076; 80320; 81003; 82088; 82977; 83735; 84244; 84484; 85025; 85379; 85610; 85730; 93005; 93306; 96372; 99285

== ENCOUNTER 2020-12-27 08:21 | Day surgery (SDC) | payer BC ==
[2020-12-26 08:56] VITALS: BMI 20.2
--- NOTE | 2020-12-27 07:14 | P.GSHP ---
History of Present Illness H&P Date: 12/27/20 CHIEF COMPLAINT: Colon screen HISTORY OF PRESENT ILLNESS: The patient is a 50-year-old male who presents for colon screen. Lower endoscopy was offered for further evaluation and management. PAST MEDICAL HISTORY: Please see list. PAST SURGICAL HISTORY: Please see list. MEDICATIONS: Please see list. ALLERGIES: Please see list. SOCIAL HISTORY: No illicit drug use FAMILY HISTORY: No reports of Crohn disease or ulcerative colitis. REVIEW OF ORGAN SYSTEMS: CONSTITUTIONAL: No reports of fevers or chills. PHYSICAL EXAM: VITAL SIGNS: Stable GENERAL: Well-developed pleasant in no acute distress. HEENT: No scleral icterus. Extraocular movements grossly intact. Moist buccal mucosa. NECK: Supple without lymphadenopathy. CHEST: Unlabored respirations. Equal bilateral excursions. CARDIOVASCULAR: Regular rate and rhythm. Distal 2+ pulses. ABDOMEN: Soft, nontender, nondistended. MUSCULOSKELETAL: No clubbing, cyanosis, or edema. ASSESSMENT: 1. Colon screen. PLAN: 1. Recommend proceeding with a lower endoscopy Past Medical History Past Medical History: Hypertension, Seizure Disorder Additional Past Medical History / Comment(s): unknown cause-had 1rst sezure December 2019,last seizure September 2020-no seizure Tx,irregular hr History of Any Multi-Drug Resistant Organisms: None Reported Past Surgical History: No Surgical Hx Reported Past Anesthesia/Blood Transfusion Reactions: No Reported Reaction Additional Past Anesthesia/Blood Transfusion Reaction / Comment(s): has never had anesthesia Smoking Status: Current every day smoker - Past Family History Father Family Medical History: Myocardial Infarction ([place]) Mother Additional Family Medical History / Comment(s): Heart Failure, latex allergy Medications and Allergies Home Medications Medication Instructions Recorded Confirmed Type Losartan [Cozaar] 100 mg PO QAM 12/26/20 12/26/20 History amLODIPine [Norvasc] 10 mg PO QAM 12/26/20 12/26/20 History Allergies Allergy/AdvReac Type Severity Reaction Status Date / Time No Known Allergies Allergy Verified 12/26/20 08:46
[~2020-12-27 08:21] MED LIST: LACTATED RINGERS 1,000 ML IV SCH; LIDOCAINE 1% (10MG/ML) FOR IV START INTRADERMA PRN
[2020-12-27 08:44] VITALS: TEMP 98
[2020-12-27] MEDS ORDERED: LACTATED RINGERS 1,000 ML IV ONE (08:45)
[2020-12-27] MEDS ORDERED: PROPOFOL 10 MG/ML 20 ML VIAL IV ONE (09:43)
[2020-12-27 10:39] VITALS: BP 168/84; PULSE 75
--- NOTE | 2020-12-27 10:44 | P.PCN ---
Date of Procedure: 12/27/20 Description of Procedure: PREOPERATIVE DIAGNOSIS: Colonoscopy screening, first POSTOPERATIVE DIAGNOSIS: Colonoscopy screening, first Ascending colon polyp OPERATION: Colonoscopy to the ileocecal valve and appendiceal orifice, cecum Colonoscopy with cold forceps biopsy SURGEON: Beatris Ibarra MD. ANESTHESIA: MAC. INDICATIONS: The patient is an 50-year-old male who presents for his first colonoscopy exam. Benefits and risks were described and informed consent was obtained. DESCRIPTION OF PROCEDURE: The patient had undergone Suprep. The patient had been brought into the operating room and laid in the left lateral decubitus position. After adequate intravenous sedation, the rectum was examined with 2% lidocaine jelly. The prostate was unremarkable. No external hemorrhoids were encountered. The rectal tone was within normal limits. No lesions were palpated in the rectal vault. An Olympus colonoscope was advanced until the cecum, ileocecal valve and appendiceal orifice were clearly viewed. The prep was good. No sigmoid diverticulosis was encountered. Colonic polyps were found and removed. No evidence of focal colitis was found. Retroflexion of the scope demonstrated grade 1 internal hemorrhoids without active bleeding or inflammation. The colon was desufflated. The patient had tolerated the procedure well. Withdrawal time was over 6 minutes. FINDINGS: Aronchick preparation quality scale 2 (1-5) Internal hemorrhoids, grade 1 No external hemorrhoids No arteriovenous malformations. No sigmoid diverticulosis Removal of 1 polyp: - Cold forceps biopsy at ascending colon, 4 mm polyp. No focal colitis. RECOMMENDATIONS: Reviewed colonoscopy 2025 Plan - Discharge Summary Discharge Rx Participant: No New Discharge Prescriptions: Continue amLODIPine [Norvasc] 10 mg PO QAM Losartan [Cozaar] 100 mg PO QAM Discharge Medication List Losartan [Cozaar] 100 mg PO QAM 12/26/20 [History] amLODIPine [Norvasc] 10 mg PO QAM 12/26/20 [History] Follow up Appointment(s)/Referral(s): Beatris Ibarra MD [STAFF PHYSICIAN] - As Needed Patient Instructions/Handouts: Colorectal Polyps (DC), Colonoscopy (DC), *Surgery [facility] - (Anesthesia) Endoscopy Discharge Instructions Activity/Diet/Wound Care/Special Instructions: Repeat colonoscopy years2025 Discharge Disposition: HOME SELF-CARE
== END 2020-12-27 11:26 | disposition home or self-care (01) ==
LOC: ORWHC2ENDO 08:21
PROVIDERS: ATTEND Surgery Plastic and Reconstructive Surgery
DX: Z12.11 Encounter for screening for malignant neoplasm of colon (principal); D12.2 Benign neoplasm of ascending colon; K64.0 First degree hemorrhoids; I10 Essential (primary) hypertension; G40.909 Epilepsy, unspecified, not intractable, without status epilepticus; I49.9 Cardiac arrhythmia, unspecified; F17.210 Nicotine dependence, cigarettes, uncomplicated; Z79.899 Other long term (current) drug therapy; Z79.82 Long term (current) use of aspirin; Z82.49 Family history of ischemic heart disease and other diseases of the circulatory system
CPT/HCPCS: 88305; 45380; J2704

== ENCOUNTER → 2021-03-22 | Outpatient (CLI) | payer BC ==
--- NOTE | 2021-03-22 10:10 | XR ---
EXAMINATION TYPE: XR chest 2V DATE OF EXAM: 03/22/2021 COMPARISON: NONE TECHNIQUE: PA and lateral views submitted. HISTORY: Syncope FINDINGS: The lungs are clear and there is no pneumothorax, pleural effusion, or focal pneumonia. Heart size normal. No overt failure. IMPRESSION: 1. No acute process.
--- NOTE | 2021-03-22 11:55 | ECHOF ---
Referral Reason:I10 essential HTN MEASUREMENTS -------- HEIGHT: 182.9 cm WEIGHT: 61.2 kg BP: IVSd: 1.2 cm (0.6 - 1.1) LVIDd: 4.6 cm (3.9 - 5.3) LVPWd: 1.3 cm (0.6 - 1.1) IVSs: 1.5 cm LVIDs: 3.6 cm LVPWs: 1.3 cm LA Diam: 3.3 cm (2.7 - 3.8) LAESV Index (A-L): 27.20 ml/m Ao Diam: 2.6 cm (2.0 - 3.7) AV Cusp: 1.2 cm (1.5 - 2.6) LA Diam: 3.0 cm (2.7 - 3.8) MV EXCURSION: 16.095 mm (> 18.000) MV EF SLOPE: 118 mm/s (70 - 150) EPSS: 0.5 cm MV E Garo: 0.72 m/s MV DecT: 179 ms MV A Garo: 0.87 m/s MV E/A Ratio: 0.82 RAP: 5.00 mmHg RVSP: 22.32 mmHg FINDINGS -------- Sinus rhythm. This was a technically good study. The left ventricular size is normal. There is mild concentric left ventricular hypertrophy. Overa ll left ventricular systolic function is normal with, an EF between 55 - 60 %. The right ventricle is normal in size. Normal LA size by volume 22+/-6 ml/m2. The right atrial size is normal. The aortic valve is trileaflet, and appears structurally normal. No aortic stenosis or regurgitation. Mild mitral regurgitation is present. Mild tricuspid regurgitation present. Right ventricular systolic pressure is normal at < 35 mmHg. There is no pulmonic regurgitation present. The aortic root size is normal. There is no pericardial effusion. CONCLUSIONS -------- 1. The left ventricular size is normal. 2. There is mild concentric left ventricular hypertrophy. 3. Overall left ventricular systolic function is normal with, an EF between 55 - 60 %. 4. The right ventricle is normal in size. 5. Normal LA size by volume 22+/-6 ml/m2. 6. The aortic valve is trileaflet, and appears structurally normal. No aortic stenosis or regurgitati on. 7. Mild mitral regurgitation is present. 8. Mild tricuspid regurgitation present. 9. The aortic root size is normal. 10. There is no pericardial effusion. AGRICULTURAL AND FORESTRY SUPERVISOR: Ally Kothari RDCS
--- NOTE | 2021-03-22 15:16 | EST ---
EXERCISE STRESS AGE: 50 SEX: M HT: 5'10" WT: 130 lbs. PROTOCOL: Jim STAGE: 4 DURATION OF EXERCISE: 12:00 HEART RATE REST: 71 BLOOD PRESSURE REST: 177/72 MAXIMUM HEART RATE ACHIEVED: 174 MAXIMUM BLOOD PRESSURE: 223/108 85% MPHR: 145 100% MPHR: 170 METS: 12.3 INDICATIONS: Syncope PROCEDURE: Exercise treadmill stress test. DATE OF SERVICE: 03/22/2021. INDICATION: chest pain. STRESS DATA: Heart rate 71, pressure is 177/91 mmHg. Baseline EKG showed sinus mechanism. The patient exercised on the treadmill according to Jerome protocol for a total of 12 minutes and achieved 12.3 METs. Max heart rate was 150 which is about 100% of maximum predicted heart rate. Maximum blood pressure was 223/103 mmHg. Clinically the patient did not have any symptoms, but the EKG showed mild changes. CONCLUSION: 1. Excellent exercise tolerance. 2. Exaggerated blood pressure in response to exercise. 3. Mild EKG changes in response to exercise. 4. I would advise getting a stress test with imaging modality. MMODL / IJN: [id number] /
== END | disposition home or self-care (01) ==
LOC: RADNMMAIN 08:08
PROVIDERS: ATTEND Nurse Practitioner
DX: I08.1 Rheumatic disorders of both mitral and tricuspid valves (principal); I10 Essential (primary) hypertension
CPT/HCPCS: 71046; 93017; 93306

== ENCOUNTER → 2021-04-04 | Outpatient (CLI) | payer BC ==
--- NOTE | 2021-04-04 08:52 | US ---
EXAMINATION TYPE: US liver DATE OF EXAM: 04/04/2021 COMPARISON: us 09/22/2020 CLINICAL HISTORY: R94.5 ABN LIVER FUNCTION TEST. Patient stated takes medication for HTN EXAM MEASUREMENTS: Liver Length: 17.2 cm Gallbladder Wall: 0.2 cm CBD: 0.3 cm Right Kidney: 10.1 x 5.4 x 3.8 cm Pancreas: wnl; prominent pancreatic duct at 2.7mm and is greater than 2.0mm. Liver: no masses seen Gallbladder: wnl Evidence for sonographic Fong's sign: no CBD: wnl Right Kidney: No hydronephrosis or masses seen IMPRESSION: Borderline enlarged pancreatic duct measuring up to 0.3 cm, unchanged since the prior exam. Please co rrelate clinically. MRCP could be obtained if clinically warranted.
== END | disposition home or self-care (01) ==
LOC: RADUSWWP 07:02
PROVIDERS: ATTEND Surgery Plastic and Reconstructive Surgery
DX: R94.5 Abnormal results of liver function studies (principal)
CPT/HCPCS: 76705

== ENCOUNTER → 2021-04-28 | Outpatient (CLI) | payer BC ==
--- NOTE | 2021-04-29 05:19 | MR ---
EXAMINATION TYPE: MR abdomen wo/w con DATE OF EXAM: 04/28/2021 COMPARISON: HISTORY: Abnormal liver US. CONTRAST: Standard multiplanar, multisequence MRI departmental protocol utilizing 6 mL intravenous Gadavist samantha olinium contrast. Liver has normal size and contour. The bile ducts are not dilated. Gallbladder is large and measures 4 cm in diameter. There is no evidence of pancreatic mass. Pancreatic duct appears normal. Common bile duct appears nor mal. Kidneys have normal size. There is no hydronephrosis. There is 2 cm cortical cyst lower pole left kid vasiliy. There is 2 cm cortical cyst medial left kidney. There is no adrenal mass. The stomach is intact. There is no sign of retroperitoneal adenopathy. There is no evidence of ascites. There is no sign of a bowel obstruction. There is no evidence of pleural effusion. Contrast images show no pathologic enhancement. There is normal enhancement of the portal venous syst em. IMPRESSION: No significant abnormality. Left renal cortical cysts. No evidence of pancreatic mass. No dilated david ts.
== END | disposition home or self-care (01) ==
LOC: RADMRIMAIN 11:33
PROVIDERS: ATTEND Internal Medicine
DX: N28.1 Cyst of kidney, acquired (principal)
CPT/HCPCS: 74183; A9585

== ENCOUNTER 2021-05-03 09:06 | Day surgery (SDC) | payer BC ==
[2021-05-02 08:15] VITALS: BMI 19.2
[~2021-05-03 09:06] MED LIST changes: -LIDOCAINE 1% (10MG/ML) FOR IV START INTRADERMA PRN
[2021-05-03 09:47] VITALS: RESP 16; TEMP 98
[2021-05-03] MEDS ORDERED: PROPOFOL 10 MG/ML 20 ML VIAL IV ONE (09:56)
[2021-05-03] MEDS ORDERED: LIDOCAINE 1% INJ 10MG/ML (20 ML MDV) ONE (09:56)
--- NOTE | 2021-05-03 10:19 | P.PCN ---
Date of Procedure: 05/03/21 Description of Procedure: BRIEF HISTORY: Patient is a 50-year-old male presenting for outpatient esophagus through due to endoscopy for symptoms of nausea and unintentional weight loss. Prior colonoscopy in 12/31 with polypectomy. Denied any heartburn, reflux, dysphagia or globus. Did report daily alcohol use. Ultrasound showed dilated pancreatic duct with MRI negative for any pancreatic pathology. PROCEDURE PERFORMED: Esophagogastroduodenoscopy with biopsy. PREOPERATIVE DIAGNOSIS: Nausea, unintentional weight loss. ESTIMATED BLOOD LOSS: Minimal. IV sedation per anesthesia. PROCEDURE: After informed consent was obtained, the patient was brought into the endoscopy unit. IV sedation was administered by Anesthesia under continuous monitoring. Initially the Olympus GIF-190 video endoscope was inserted into the mouth. Esophagus intubated without any difficulty. It was gradually advanced into the stomach and duodenum and carefully examined. The bulb and the second part of the duodenum appeared normal, With biopsies taken. The scope at this time was withdrawn to the stomach, adequately insufflated with air, and upon careful examination, mucosa of the antrum, body, cardia and the fundus appeared normal, Except for some mild scattered erythema in the antrum suggestive of mild gastritis with biopsies taken. The scope was then withdrawn into the esophagus. The GE junction was located at 42 cm from the incisors. The esophagus appeared normal, With lower esophageal biopsies and. There were no erosions or ulcerations seen and the patient tolerated the procedure well. IMPRESSION: 1. Mild gastritis . 2. Biopsies of the duodenum, antrum and body and lower esophagus. RECOMMENDATIONS: The findings of this examination were discussed with the patient and his family. Okay to resume diet. Okay to resume medications. Patient had been given a trial of omeprazole daily which she has not started. Await pathology from biopsies. Follow up in the GI clinic as scheduled.
[2021-05-03 10:35] VITALS: BP 130/80; PULSE 78
== END 2021-05-03 11:05 | disposition home or self-care (01) ==
LOC: ORWHC2ENDO 09:06
PROVIDERS: ATTEND Internal Medicine
DX: K29.70 Gastritis, unspecified, without bleeding (principal); K29.80 Duodenitis without bleeding; I10 Essential (primary) hypertension; R56.9 Unspecified convulsions; Z79.82 Long term (current) use of aspirin; F17.210 Nicotine dependence, cigarettes, uncomplicated; F12.90 Cannabis use, unspecified, uncomplicated
CPT/HCPCS: 43239; 88305; J2001; J2704

== ENCOUNTER → 2025-05-03 | Outpatient (CLI) | payer BC ==
--- NOTE | 2025-05-03 14:01 | MR ---
EXAMINATION TYPE: MR knee RT wo con DATE OF EXAM: 05/03/2025 1:23 PM COMPARISON: Outside radiographs 04/19/2025 CLINICAL INDICATION: Male, 54 years old with history of M25.561 RIGHT KNEE PAIN, Rt knee pain, sprain TECHNIQUE: Multiplanar, multisequence imaging of the right knee is performed without IV contrast. FINDINGS: The ACL and PCL are intact. There is edema on either side of the otherwise intact MCL. There is heterogeneity and abnormal signal involving the femoral attachment of the LCL proper. There is also linear abnormal signal within the popliteus tendon. There is a complex multidirectional, macerated tear involving the body of the medial meniscus. Irregu lar tearing extends into the posterior horn. Moderate irregular cartilage loss along the mid weightbearing aspect of the medial compartment. Lateral meniscus is intact. Mild diffuse thinning of lateral compartment articular cartilage volume. Patellofemoral compartment articular cartilage is maintained. There is moderate to large knee joint effusion and a small, 2.8 cm leaking Cardenas's cyst. Extensor mechanism is intact. Normal popliteal artery anatomy and muscle bulk. No suspicious bone marrow replacement. IMPRESSION: 1. Complex, multidirectional, macerated tear involving the body of the medial meniscus. Irregular tea ring extends into the posterior horn. Moderate irregular cartilage loss throughout the mid weightbear ing aspect of the medial compartment. 2. Grade 1 MCL sprain. 3. Grade 1 sprain at the femoral attachment of the LCL proper and popliteus tendon contusion. 4. Moderate to large knee joint effusion and a small 2.8 cm leaking Cardenas's cyst. [facility], , 05/03/2025 1:58 PM
== END | disposition home or self-care (01) ==
LOC: RADMRIMAIN 12:53
PROVIDERS: ATTEND Orthopaedic Surgery
DX: S80.01XA Contusion of right knee, initial encounter (principal); S83.411A Sprain of medial collateral ligament of right knee, initial encounter; M71.21 Synovial cyst of popliteal space [Baker], right knee; X58.XXXA Exposure to other specified factors, initial encounter